=== PATIENT | female | born 1945 | race Caucasian/White ===

== ENCOUNTER 2016-09-21 09:13 | Inpatient (IN) ==
--- NOTE | 2016-09-21 14:32 | History & Physical Report ---
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 She had a left femoropopliteal bypass by Dr. Sanches in March 2016. However, following this procedure, the skin incision over the graft dehisced. Subsequently, she underwent a muscle flap with wound VAC on 04/14/[address] Escamilla, only to have it become infected with Pseudomonas. Dr. Sanches removed the left femoropopliteal bypass and then reapplied the wound VAC on 04/20/16. She has had a chronic nonhealing wound since that time. She represented to Dr. Sanches 's office on 06/09/16 with a severe infection of her left lower extremity and ulceration of the distal phalanx and dorsal aspect of the left foot. Amputation was recommended at that time, and she underwent left [id number]-iuv-fiha amputation by Dr. Yonatan Pike on 06/19/16. Since this time, she had developed a nonhealing wound of her left BKA stump and medial thigh. She was readmitted to the hospital, and underwent debridement of the left lower extremity stump and medial thigh wound on 09/13/[address] Pike. Cultures grew out Pseudomonas and Serratia marcescens, which were sensitive to cefepime.Instill VAC with Vashe was placed and she had slow improvement. During her hospitalization, her blood glucose was variable, ranging from mildly hypoglycemic to 200+. White count was occasionally elevated and was 12.9 on the day of discharge. Hemoglobin stable. Chemistries also remained stable with preserved renal function and GFR >60. A regular VAC was placed on 09/20/16, and arrangements were made for transfer to [facility] for continued IV antibiotics and wound care in swing bed status. Since her recent surgery she has denied any other physical symptoms besides pain. She's also had constipation, which has resolved. Review of Systems Comprehensive ROS: completed and no additional positive findings except those as stated - Gastrointestinal Gastrointestinal: Present: constipation, other (bloating) - Musculoskeletal Musculoskeletal: Present: as per HPI - Hematologic/Lymphatic Hematologic/Lymphatic: Present: easy bruising PFSH PVD Bradycardia normal EKG and troponin at [facility] Urinary retention Constipation DM type 2 with peripheral neuropathy, insulin-dependent. Last Hgb A1c was 6.4% on 10/05/15. Depression/anxiety Hx gastric ulcer IBS Surgical History: Left BKA (06/19/16). Left popliteal artery graft (04/20/16). Supplement left femoral artery with autologous tissue (04/20/16). Debridement of lower extremity with flap rotational pedicle (04/14/16). Femoral-popliteal artery bypass graft by Dr. Sanches (03/2016). Colonoscopy (08/06/12). EGD (08/06/12 ). Hysterectomy (1983). . Cholecystectomy Family History: Father - CAD, COPD Mother - Cancer PGF - CAD, HTN - Social History Smoking status: Current every day smoker packs per day: 1 Packs-years: 50 Substance use type: does not use Alcohol intake frequency: does not drink Current occupational status: retired Exam - Constitutional Present: no acute distress, well nourished, well developed - Routine HEENT Exam Eye: Present: PERRL. Absent: conjunctival icterus, scleral injection ENT: Present: mucous membranes moist, oropharynx clear - Routine Neck Exam Present: supple. Absent: lymphadenopathy - Routine Respiratory Exam Present: CTA bilaterally - Routine Cardiovascular Exam Present: RRR, S1, S2, bradycardia - Routine Abdominal Exam Present: normoactive bowel sounds, non tender, distended (mild) - Routine Extremities Exam Present: edema (2+ RLE). Absent: pulses intact (difficult to palpate left DP) - Routine Skin Exam Present: dry, warm Comments: dressing over left stump - Routine Neurological Exam Present: alert, oriented X3 - Routine Psychiatric Exam Present: normal affect, normal thought process, cooperative Assessment and Plan (1) Non-healing wound Current visit: Yes Status: Acute DVT Prophylaxis: Lovenox Resuscitation Status: Full Code Assessment and Plan: ASSESSMENT Non-healing wound of left BKA stump and medial thigh wound Cx grew Pseudomonas and Serratia marcescens, sensitive to cefepime. S/P debridement LLE stump & medial thigh wound on 09/13/[address] Pike. Instill VAC with Vashe was placed with slow improvement. Regular VAC was placed on 09/20/16. PVD Bradycardia normal EKG and troponin at [facility] Urinary retention Constipation DM type 2 with peripheral neuropathy, insulin-dependent. Last Hgb A1c was 6.4% on 10/05/15. Depression/anxiety Hx gastric ulcer IBS PLAN Admit to [facility], swing bed status for wound care and IV antibiotics. [facility] records were reviewed, along with DC instructions: -Cefepime IV q6h. -PICC line change weekly & PRN -Change wound vac MWF, suction @ 125 mm Hg -F/U [address] Pike -Plan to return for autograft at a later date. Check CBC and BMP in am - WBC was elevated at 12.9 on 09/20/16. Repeat hgb A1c. Carb consistent diet. Monitor BG and continue home meds. Consult wound team for wound vac care. Constipation - MiraLAX, other PRN's available. Pain control - Percocet. Also requesting Baclofen and Lyrica, which she's been taking at home. Consult PT/OT. Tobacco use - consult RT for tobacco cessation. Nicotine patch. Pt inquiring about other pharmacologic options as well. I informed her that [facility] is a nonsmoking facility. Pt and family report concern about vascular status in RLE - recommend f/u with vascular surgeon. I informed them they would not recommend any procedures until this infection has cleared up. PCP - Dr. Funk. At time of H&P, home meds have not yet been reconciled. Hospital Course Summary Disclaimer: The visit summary below is not to be considered part of the above Progress Note. Hospital Course: 09/21/16 ASSESSMENT Non-healing wound of left BKA stump and medial thigh wound Cx grew Pseudomonas and Serratia marcescens, sensitive to cefepime. S/P debridement LLE stump & medial thigh wound on 09/13/[address] Pike. Instill VAC with Vashe was placed with slow improvement. Regular VAC was placed on 09/20/16. PVD Bradycardia [facility] Urinary retention Constipation DM type 2 with peripheral neuropathy, insulin-dependent. Last Hgb A1c was 6.4% on 10/05/15. Depression/anxiety Hx gastric ulcer IBS PLAN Admit to [facility], swing bed status for wound care and IV antibiotics. [facility] records were reviewed, along with DC instructions: -Cefepime IV q6h. -PICC line change weekly & PRN -Change wound vac MWF, suction @ 125 mm Hg -F/U [address] Pike -Plan to return for autograft at a later date. Check CBC and BMP in am - WBC was elevated at 12.9 on 09/20/16. Repeat hgb A1c. Carb consistent diet. Monitor BG and continue home meds. Consult wound team for wound vac care. Constipation - MiraLAX, other PRN's available. Pain control - Percocet. Also requesting Baclofen and Lyrica, which she's been taking at home. Consult PT/OT. Tobacco use - consult RT for tobacco cessation. Nicotine patch. Pt inquiring about other pharmacologic options as well. I informed her that [facility] is a nonsmoking facility. Pt and family report concern about vascular status in RLE - recommend f/u with vascular surgeon. I informed them they would not recommend any procedures until this infection has cleared up. <Shona Singh - Last Filed: 09/21/16 17:02> History of Present Illness Date: 09/21/16 [facility] Patient Stated Medical History Cataracts Yes Hypotension Yes: at times Other Cardiology Yes: mitral valve prolapse, PAD Bronchitis Yes Pneumonia Yes Diabetes Mellitus Type 2 Yes Other GI Yes: IBS Other Hematologic Yes: on plavix for PAD Shingles Yes Blood Transfusions Yes Exam Vital Signs: Temperature 95.6 F L 09/21/16 14:43 Pulse Rate 83 09/21/16 14:43 Blood Pressure 120/48 09/21/16 14:43 Pulse Oximetry 94 09/21/16 14:43 Oxygen Delivery Method Room Air Height: 1.63 m Weight: 74.7 kg Assessment and Plan (1) Non-healing wound Current visit: Yes Status: Acute Assessment and Plan: 09/21/2016-I reviewed this chart, the patient history, and the BIRD CAGE ASSEMBLER's/PA's documented findings as above. We discussed and formulated the assessment and plan as above with the additions below. I have seen and examined the patient independently.-Dr. Singh Patient states that she is doing fairly well. She does have some continued pain in the left leg where her wound is from her BKA. Percocet does control her pain. She states her appetite has been good. She denies any shortness of breath. She denies any nausea or vomiting. She denies any diarrhea. She did have some constipation but that has resolved. She states that it is a little difficult to start urination but after a few moments she is able to urinate without difficulties. She states she would like some medication to help her quit smoking. She is tried Chantix and Wellbutrin and neither of them helped in the past. On exam she is alert and oriented 3 and in no acute distress. Chest is clear to auscultation. Cardiovascular reveals a regular rate and rhythm. Abdomen is soft and nontender. Extremities reveal a left BKA and the stump is currently wrapped. Right lower extremity shows 2+ edema. She states the edema has been there since her BKA in June. Agree with continued cefepime IV every 6 for postop wound infection after BKA. She will need antibiotics through September 30. I did ask case management to have paperwork from infectious disease specialist faxed to us with those recommendations. The patient states that Dr. Funk has given her a medication in the past for itching that supposedly helps with smoking cessation. I have called and spoken with his nurse and she will call back with the name of this medication. Regarding urinary retention, the patient states this is fairly mild and has not caused her any difficulties in the past. She denies any symptoms of UTI. Hospital Course Summary Disclaimer: The visit summary below is not to be considered part of the above Progress Note.
[2016-09-21] MEDS ORDERED: NICOTINE 21 MG PATCH TD PRN (15:05)
[2016-09-21] MEDS ORDERED: SENNA + DOCUSATE TABLET PO PRN (15:06)
[2016-09-21] MEDS ORDERED: BISACODYL 10 MG SUPPOSITORY RECTALLY PRN (15:06)
[2016-09-21] MEDS ORDERED: NICOTINE PATCH REMOVAL TD PRN (15:21)
[2016-09-21 15:54] VITALS: BMI 28.3
[2016-09-21] MEDS: CEFEPIME 1 GM in NS 100 ML IV SCH ×2 (17:12→22:29)
[2016-09-21] MEDS ORDERED: BACLOFEN 10 MG TABLET PO PRN (18:37)
[2016-09-21] MEDS ORDERED: APAP PO SCH (18:45)
[2016-09-21] MEDS ORDERED: OXYCODONE PO SCH (18:45)
[2016-09-21] MEDS ORDERED: INSULIN GLARGINE 100unit/ml INJECTION SQ SCH (22:00)
[2016-09-21] MEDS: PREGABALIN 100 MG CAPSULE PO SCH ×2 (22:30→23:47)
[2016-09-21] MEDS: ROSUVASTATIN 20 MG TABLET PO SCH (23:26)
[2016-09-22] MEDS: CEFEPIME 1 GM in NS 100 ML IV SCH ×4 (04:09→21:25)
[2016-09-22] MEDS: INSULIN ASPART 100unit/ml INJECTION SQ SCH ×3 (08:30→18:53)
[2016-09-22] MEDS: ENOXAPARIN 40 MG/0.4 ML INJECTION SQ SCH (08:30)
[2016-09-22] MEDS: CALCIUM CITRATE 950 MG TABLET PO SCH (08:31)
[2016-09-22] MEDS: MULTI-VITAMIN + MINERAL TABLET PO SCH (08:31)
[2016-09-22] MEDS: LACTOBACILLUS (15B cfu) CAPSULE PO SCH (08:31)
[2016-09-22] MEDS: ZINC GLUCONATE 50 MG TABLET PO SCH (08:32)
[2016-09-22] MEDS: MAGNESIUM OXIDE 400 MG TABLET PO SCH (08:32)
[2016-09-22] MEDS: CLOPIDOGREL 75 MG TABLET PO SCH (08:32)
[2016-09-22] MEDS: LISINOPRIL 10 MG TABLET PO SCH (08:32)
[2016-09-22] MEDS: PREGABALIN 100 MG CAPSULE PO SCH ×3 (08:32→20:17)
[2016-09-22] MEDS ORDERED: DULOXETINE 60 MG CAPSULE PO SCH (09:00)
[2016-09-22] MEDS ORDERED: POLYETHYL GLYCOL 3350 17gm PACKET PO SCH (09:00)
[2016-09-22] MEDS: ASCORBIC ACID 500 MG TABLET PO SCH (09:39)
[2016-09-22] MEDS: POLYETHYL GLYCOL 3350 17gm PACKET PO SCH (09:39)
[2016-09-22] MEDS: DULOXETINE 30 MG CAPSULE PO SCH (09:39)
[2016-09-22] MEDS: Oxycodone/Acetaminophen 5/325 1 TAB PO PRN (12:58)
--- NOTE | 2016-09-22 13:20 | Wound Care Progress Note ---
Wound Management - Wound Left Distal Leg Wound Type: Open Wound Wound Present on Admission?: Yes Length: 5 Width: 5.8 Depth: 0.6 Tunneling Location (o'clock): 1 (depth of 3.6 at 1o'clock & 1.9 at 7o'clock) Wound Bed Appearance: Yellow Natalia Wound Appearance: Indurated, Macerated Tunneling: Yes (at 1 o'clock & 7 o'clock) Drainage Description: Gates Drainage Amount: Moderate Drainage Odor: No Odor Dressing Status: Changed Irrigant Solution: Saline Irrigant Packing Type: Gauze Pads (anticipate wound vac orders from Dr Iyer this afternoon. Anticipate Wound vac placement - if ordered - later today.) Dressing Change Date: 09/22/16 Dressing Change Time: 01:24 (Dr Iyer will establish wound treatmement plan at time of consult.) Dressing Change Patient Tolerance: Tolerated Well
[2016-09-22] MEDS ORDERED: HYDROMORPHONE 2 MG/ML INJECTION IVP PRN (13:31)
--- NOTE | 2016-09-22 13:45 | Progress Note ---
Subjective: The patient states that she is feeling okay. She did not sleep well last night. Per her nurse, she has been going out side to smoke even though she was told this was a nonsmoking facility and she was encouraged not to smoke because of her peripheral vascular disease and difficult to heal wound. She has refused trying nicotine patch because she states she has tried it in the past and it does not work. She has tried Wellbutrin and Chantix and had side effects from both of these. She is otherwise feeling okay. She is eating and drinking well. She denies any pain other than in her left BKA associated with her nonhealing wound. Objective Vital signs: Temperature 97.4 F 09/22/16 02:27 Pulse Rate 76 09/22/16 08:20 Respiratory Rate 16 09/22/16 02:27 Blood Pressure 112/58 09/22/16 08:20 Pulse Oximetry 96 09/22/16 02:27 Oxygen Delivery Method Room Air Height: 1.63 m Weight: 74.7 kg Body Mass Index: 28.3 Comments: GEN-alert, oriented, no acute distress CV-regular rate and rhythm CHEST-to auscultation bilaterally ABD-soft, nontender with positive bowel sounds -no Pham EXT-+ 1 edema of the left lower extremity which has been present for several months, she has a nonhealing wound at the distal end of her left BKA NEURO-no focal deficits SKIN-warm and dry, mild erythema of the right long which I think is related to her chronic edema Results - Labs CBC & Chem 7: 09/22/16 04:55 09/22/16 04:55 Assessment and Plan (1) Non-healing wound Current visit: Yes Status: Acute Assessment and Plan: 09/22/2016 -Dr. Singh Impression Infected, nonhealing wound of left BKA stump with culture growing Pseudomonas and Serratia marcescens sensitive to cefepime Type 2 diabetes mellitus-currently well controlled on usual home insulin. Peripheral vascular disease History of bradycardia with normal EKG and troponin of via [facility] Mild urinary retention-no treatment required at this time constipation Depression/anxiety History of gastric ulcer Irritable bowel syndrome Tobaccoism Continue cefepime 1 g IV every 6 hours through September 30. Plan for discharge on October 01. Wound care per Dr. Iyer. Dr. Iyer has been consulted for possible debridement and wound VAC placement Continue current insulin for type 2 diabetes and continue to monitor Accu-Cheks Recommend smoking cessation. She can try the nicotine patches again if she wishes that she cannot use the nicotine patch and smoke at the same time. Discussed with the patient's nurse, case management and wound care team. Sepsis Assessment - Evaluation Sepsis screening result: No Definite Risk Hospital Course Summary Disclaimer: The visit summary below is not to be considered part of the above Progress Note. Hospital Course: 09/21/16 ASSESSMENT Non-healing wound of left BKA stump and medial thigh wound Cx grew Pseudomonas and Serratia marcescens, sensitive to cefepime. S/P debridement LLE stump & medial thigh wound on 09/13/[address] Pike. Instill VAC with Vashe was placed with slow improvement. Regular VAC was placed on 09/20/16. PVD Bradycardia normal EKG and troponin at [facility] Urinary retention Constipation DM type 2 with peripheral neuropathy, insulin-dependent. Last Hgb A1c was 6.4% on 10/05/15. Depression/anxiety Hx gastric ulcer IBS PLAN Admit to [facility], swing bed status for wound care and IV antibiotics. Via [facility] records were reviewed, along with DC instructions: -Cefepime IV q6h. -PICC line change weekly & PRN -Change wound vac MWF, suction @ 125 mm Hg -F/U [address] Pike -Plan to return for autograft at a later date. Check CBC and BMP in am - WBC was elevated at 12.9 on 09/20/16. Repeat hgb A1c. Carb consistent diet. Monitor BG and continue home meds. Consult wound team for wound vac care. Constipation - MiraLAX, other PRN's available. Pain control - Percocet. Also requesting Baclofen and Lyrica, which she's been taking at home. Consult PT/OT. Tobacco use - consult RT for tobacco cessation. Nicotine patch. Pt inquiring about other pharmacologic options as well. I informed her that [facility] is a nonsmoking facility. Pt and family report concern about vascular status in RLE - recommend f/u with vascular surgeon. I informed them they would not recommend any procedures until this infection has cleared up. 09/21/2016-I reviewed this chart, the patient history, and the FIRST COOK's/PA's documented findings as above. We discussed and formulated the assessment and plan as above with the additions below. I have seen and examined the patient independently.-Dr. Singh Patient states that she is doing fairly well. She does have some continued pain in the left leg where her wound is from her BKA. Percocet does control her pain. She states her appetite has been good. She denies any shortness of breath. She denies any nausea or vomiting. She denies any diarrhea. She did have some constipation but that has resolved. She states that it is a little difficult to start urination but after a few moments she is able to urinate without difficulties. She states she would like some medication to help her quit smoking. She is tried Chantix and Wellbutrin and neither of them helped in the past. On exam she is alert and oriented 3 and in no acute distress. Chest is clear to auscultation. Cardiovascular reveals a regular rate and rhythm. Abdomen is soft and nontender. Extremities reveal a left BKA and the stump is currently wrapped. Right lower extremity shows 2+ edema. She states the edema has been there since her BKA in June. Agree with continued cefepime IV every 6 for postop wound infection after BKA. She will need antibiotics through September 30. I did ask case management to have paperwork from infectious disease specialist faxed to us with those recommendations. The patient states that Dr. Funk has given her a medication in the past for itching that supposedly helps with smoking cessation. I have called and spoken with his nurse and she will call back with the name of this medication. Regarding urinary retention, the patient states this is fairly mild and has not caused her any difficulties in the past. She denies any symptoms of UTI.
--- NOTE | 2016-09-22 14:13 | Progress Note ---
Subjective: Alysia was seen during a late lunch - she is eating healthily with a salad and vegetable sides. She is doing fairly well but is still bloated. Bowels are moving and she's passing flatus. She slept fair last night. She is expecting the wound team this afternoon to apply the vac. Objective Vital signs: Temperature 97.4 F 09/22/16 02:27 Pulse Rate 76 09/22/16 08:20 Respiratory Rate 16 09/22/16 02:27 Blood Pressure 112/58 09/22/16 08:20 Pulse Oximetry 96 09/22/16 02:27 Oxygen Delivery Method Room Air Height: 1.63 m Weight: 74.7 kg Body Mass Index: 28.3 - Constitutional Present: no acute distress, well nourished, well developed - Routine HEENT Exam Head: Present: normocephalic ENT: Present: mucous membranes moist - Routine Respiratory Exam Present: CTA bilaterally - Routine Cardiovascular Exam Present: RRR, S1, S2 - Routine Abdominal Exam Present: soft, normoactive bowel sounds (hyperactive), non tender, distended - Routine Extremities Exam Present: edema (2-3+ RLL), amputation (left bka - stump covered in dsg - no wound vac yet) - Routine Skin Exam Present: intact, dry, warm - Routine Neurological Exam Present: alert, oriented X3 - Routine Psychiatric Exam Present: normal affect, normal thought process Results - Labs CBC & Chem 7: 09/22/16 04:55 09/22/16 04:55 Assessment and Plan (1) Non-healing wound Current visit: Yes Status: Acute Assessment and Plan: Impression Infected, nonhealing wound of left BKA stump with culture growing Pseudomonas and Serratia marcescens sensitive to cefepime Mild hypernatremia, not POA Leukocytosis, POA - resolved Type 2 diabetes mellitus-currently well controlled on usual home insulin. Peripheral vascular disease History of bradycardia with normal EKG and troponin of via [facility] Mild urinary retention-no treatment required at this time constipation Depression/anxiety History of gastric ulcer Irritable bowel syndrome Tobaccoism PLAN Continue Cefepime IV q6h. Stop date is 07/31 and then can DC home with home health on 10/01/16. Leukocytosis - WBC normal today. Mild hypernatremia Constipation - continue meds. Monitor for ileus. Tobacco cessation - awaiting to hear back from PCP's office (apparently Dr. Funk has recommended a medication to her in the past to help with quitting) DM2 - Hgb A1c pending. BGM stable. Sepsis Assessment - Evaluation Sepsis screening result: No Definite Risk Hospital Course Summary Disclaimer: The visit summary below is not to be considered part of the above Progress Note. Hospital Course: 09/21/16 ASSESSMENT Non-healing wound of left BKA stump and medial thigh wound Cx grew Pseudomonas and Serratia marcescens, sensitive to cefepime. S/P debridement LLE stump & medial thigh wound on 09/13/[address] Pike. Instill VAC with Vashe was placed with slow improvement. Regular VAC was placed on 09/20/16. PVD Bradycardia normal EKG and troponin at [facility] Urinary retention Constipation DM type 2 with peripheral neuropathy, insulin-dependent. Last Hgb A1c was 6.4% on 10/05/15. Depression/anxiety Hx gastric ulcer IBS PLAN Admit to [facility], swing bed status for wound care and IV antibiotics. [facility] records were reviewed, along with DC instructions: -Cefepime IV q6h. -PICC line change weekly & PRN -Change wound vac MWF, suction @ 125 mm Hg -F/U [address] Pike -Plan to return for autograft at a later date. Check CBC and BMP in am - WBC was elevated at 12.9 on 09/20/16. Repeat hgb A1c. Carb consistent diet. Monitor BG and continue home meds. Consult wound team for wound vac care. Constipation - MiraLAX, other PRN's available. Pain control - Percocet. Also requesting Baclofen and Lyrica, which she's been taking at home. Consult PT/OT. Tobacco use - consult RT for tobacco cessation. Nicotine patch. Pt inquiring about other pharmacologic options as well. I informed her that [facility] is a nonsmoking facility. Pt and family report concern about vascular status in RLE - recommend f/u with vascular surgeon. I informed them they would not recommend any procedures until this infection has cleared up. 09/21/2016-I reviewed this chart, the patient history, and the DEPUTY GENERAL COUNSEL's/PA's documented findings as above. We discussed and formulated the assessment and plan as above with the additions below. I have seen and examined the patient independently.-Dr. Singh Patient states that she is doing fairly well. She does have some continued pain in the left leg where her wound is from her BKA. Percocet does control her pain. She states her appetite has been good. She denies any shortness of breath. She denies any nausea or vomiting. She denies any diarrhea. She did have some constipation but that has resolved. She states that it is a little difficult to start urination but after a few moments she is able to urinate without difficulties. She states she would like some medication to help her quit smoking. She is tried Chantix and Wellbutrin and neither of them helped in the past. Agree with continued cefepime IV every 6 for postop wound infection after BKA. She will need antibiotics through September 30. I did ask case management to have paperwork from infectious disease specialist faxed to us with those recommendations. The patient states that Dr. Funk has given her a medication in the past for itching that supposedly helps with smoking cessation. I have called and spoken with his nurse and she will call back with the name of this medication. Regarding urinary retention, the patient states this is fairly mild and has not caused her any difficulties in the past. She denies any symptoms of UTI. 09/22/16 Continue Cefepime IV q6h. Stop date is 07/31 and then can DC home with home health on 10/01/16. Leukocytosis - WBC normal today. Mild hypernatremia
--- NOTE | 2016-09-22 16:31 | General Surgery Procedure Note ---
Date of Procedure: 09/22/16 Surgeon: Other (Lelo Cruz, [employer] VICE PRESIDENT) Postoperative Diagnosis: wound left BKA stump Procedure: Wound vac with 1 piece black foam to stump wound. Suction at 125, continuous. Estimated Blood Loss: See Anesthesia Record.
--- NOTE | 2016-09-22 16:35 | General Surgery Consult Note ---
Consult date: 09/22/16 Attending Physician: Shona Singh MD Reason for consult: wound care [facility] Patient Stated Medical History Cataracts Yes Hypotension Yes: at times Other Cardiology Yes: mitral valve prolapse, PAD Bronchitis Yes Pneumonia Yes Diabetes Mellitus Type 2 Yes Other GI Yes: IBS Other Hematologic Yes: on plavix for PAD Shingles Yes Blood Transfusions Yes Surgical History: Left BKA (06/19/16). Left popliteal artery graft (04/20/16). Supplement left femoral artery with autologous tissue (04/20/16). Debridement of lower extremity with flap rotational pedicle (04/14/16). Femoral-popliteal artery bypass graft by Dr. Sanches (03/2016). Colonoscopy (08/06/12). EGD (08/06/12 ). Hysterectomy (1983). . Cholecystectomy Family History: father - COPD, CAD mother - cancer - Social History Smoking status: Current every day smoker Substance use type: does not use Alcohol intake frequency: does not drink Current occupational status: retired Current residence: Apartment/Private Home Medications Home Medications Medication Instructions Recorded Confirmed Type Alendronate [Fosamax] 70 mg PO Q7D 09/21/16 09/21/16 History Ascorbic Acid 500 mg PO DAILY 09/21/16 09/21/16 History Baclofen [Lioresal] 1 tab PO Q8HPRN PRN 09/21/16 09/21/16 History Calcium Citrate 250 mg PO DAILY 09/21/16 09/21/16 History Cholecalciferol (Vitamin D3) 1 tab PO DAILY 09/21/16 09/21/16 History [Vitamin D3] Ciclopirox/Ure/Camph/Menth/Euc 34.6 ml TP DAILY 09/21/16 09/21/16 History [Ciclopirox 8% Treatment Kit] Clopidogrel Bisulfate [Clopidogrel] 1 tab PO DAILY 09/21/16 09/21/16 History Duloxetine [Cymbalta] 90 mg PO DAILY 09/21/16 09/21/16 History Insulin Aspart [NovoLOG] 20 unit SQ TIDWM 09/21/16 09/21/16 History Insulin Degludec *U100* [Tresiba 40 unit SQ HS 09/21/16 09/21/16 History Flextouch U-100 Pen] Lactobacillus Rhamnosus GG 1 each PO DAILY 09/21/16 09/21/16 History [Culturelle] Lisinopril [Prinivil] 10 mg PO DAILY 09/21/16 09/21/16 History Magnesium Oxide [Magnesium] 1 tab PO DAILY 09/21/16 09/21/16 History Multivitamin [One Daily] 1 each PO DAILY 09/21/16 09/21/16 History Oxycodone/APAP 5/325 1 tab PO Q6HPRN 09/21/16 09/21/16 History Polyethylene Glycol 3350 [Miralax] 17 gm PO DAILY 09/21/16 09/21/16 History Pregabalin Cap [Lyrica] 100 mg PO TID 09/21/16 09/21/16 History Rosuvastatin Calcium 40 mg PO HS 09/21/16 09/21/16 History Zinc Sulfate 220 mg PO DAILY 09/21/16 09/21/16 History Allergies Allergy/AdvReac Type Severity Reaction Status Date / Time codeine Allergy Unknown Verified 09/21/16 16:29 Review of Systems 10-point ROS: negative except for HPI and the following: - Gastrointestinal Gastrointestinal: Present: constipation - Musculoskeletal Musculoskeletal: Present: other (stump pain, left BKA, uses wheelchair and is hoping for a prosthesis at some point.) - Endocrine Endocrine: Present: diabetes - Vital Signs Last Vital Signs Temp 97.4 F 09/22/16 02:27 Pulse 76 09/22/16 08:20 Resp 16 09/22/16 02:27 BP 112/58 09/22/16 08:20 Pulse Ox 96 09/22/16 02:27 - Laboratory Result Diagrams: 09/22/16 04:55 09/22/16 04:55 Wound/Stoma/Drain Assessment - Wound Management Left Distal Leg Wound Type: Open Wound Wound Present on Admission?: Yes Wound Length: 5 Wound Width: 5.8 Wound Depth: 0.6 Tunneling: Yes (at 1 o'clock & 7 o'clock) Wound Bed Appearance: Yellow Wound Surrounding Tissue Appearance: Indurated, Macerated Wound Drainage Description: Gates Wound Drainage Amount: Moderate Wound Drainage Odor: No Odor Wound Dressing Status: Changed Wound Irrigant Solution: Saline Irrigant Wound Packing Type: Gauze Pads (anticipate wound vac orders from Dr Iyer this afternoon. Anticipate Wound vac placement - if ordered - later today.) Dressing Change Date: 09/22/16 Dressing Change Time: 01:24 (Dr Iyer will establish wound treatmement plan at time of consult.) Dressing Change Patient Tolerance: Tolerated Well General Surgery Results - Results Labs: 09/22/16 04:55 09/22/16 04:55 Hospital Course Summary Disclaimer: The visit summary below is not to be considered part of the above Progress Note. Hospital Course: 09/21/16 ASSESSMENT Non-healing wound of left BKA stump and medial thigh wound Cx grew Pseudomonas and Serratia marcescens, sensitive to cefepime. S/P debridement LLE stump & medial thigh wound on 09/13/[address] Pike. Instill VAC with Vashe was placed with slow improvement. Regular VAC was placed on 09/20/16. PVD Bradycardia normal EKG and troponin at [facility] Urinary retention Constipation DM type 2 with peripheral neuropathy, insulin-dependent. Last Hgb A1c was 6.4% on 10/05/15. Depression/anxiety Hx gastric ulcer IBS PLAN Admit to [facility], swing bed status for wound care and IV antibiotics. [facility] records were reviewed, along with DC instructions: -Cefepime IV q6h. -PICC line change weekly & PRN -Change wound vac MWF, suction @ 125 mm Hg -F/U [address] Pike -Plan to return for autograft at a later date. Check CBC and BMP in am - WBC was elevated at 12.9 on 09/20/16. Repeat hgb A1c. Carb consistent diet. Monitor BG and continue home meds. Consult wound team for wound vac care. Constipation - MiraLAX, other PRN's available. Pain control - Percocet. Also requesting Baclofen and Lyrica, which she's been taking at home. Consult PT/OT. Tobacco use - consult RT for tobacco cessation. Nicotine patch. Pt inquiring about other pharmacologic options as well. I informed her that [facility] is a nonsmoking facility. Pt and family report concern about vascular status in RLE - recommend f/u with vascular surgeon. I informed them they would not recommend any procedures until this infection has cleared up. 09/21/2016-I reviewed this chart, the patient history, and the MANAGER VAN's/PA's documented findings as above. We discussed and formulated the assessment and plan as above with the additions below. I have seen and examined the patient independently.-Dr. Singh Patient states that she is doing fairly well. She does have some continued pain in the left leg where her wound is from her BKA. Percocet does control her pain. She states her appetite has been good. She denies any shortness of breath. She denies any nausea or vomiting. She denies any diarrhea. She did have some constipation but that has resolved. She states that it is a little difficult to start urination but after a few moments she is able to urinate without difficulties. She states she would like some medication to help her quit smoking. She is tried Chantix and Wellbutrin and neither of them helped in the past. Agree with continued cefepime IV every 6 for postop wound infection after BKA. She will need antibiotics through September 30. I did ask case management to have paperwork from infectious disease specialist faxed to us with those recommendations. The patient states that Dr. Funk has given her a medication in the past for itching that supposedly helps with smoking cessation. I have called and spoken with his nurse and she will call back with the name of this medication. Regarding urinary retention, the patient states this is fairly mild and has not caused her any difficulties in the past. She denies any symptoms of UTI. 09/22/16 Continue Cefepime IV q6h. Stop date is 07/31 and then can DC home with home health on 10/01/16. Leukocytosis - WBC normal today. Mild hypernatremia Sepsis Assessment - Evaluation Sepsis screening result: No Definite Risk
--- NOTE | 2016-09-22 17:46 | Consultation ---
DATE OF CONSULTATION 09/22/2016 FINDINGS Mrs. Rosa is a 71-year-old female whom I was asked to see today as a result of a wound involving her left dntcl-pys-dixc amputation site. The patient has a complicated history. She does have history for diabetes mellitus associated with peripheral arterial disease. Earlier this year she did undergo peripheral bypass utilizing probably a PTFE graft. Patient states that her "artificial artery" became infected with Pseudomonas requiring left edxqv-sud-axwr amputation. She states that she has been hospitalized in [place] and was transferred to our facility as a swing bed status for her further care. Patient states that following debridement she did develop a large wound involving the left stump. She states that she had been returned to the operating room for additional debridement and that they had been utilizing a wound VAC at [facility]. Patient this evening was in good spirits. PAST MEDICAL HISTORY, PAST SURGICAL HISTORY, MEDICATIONS, ALLERGIES, SOCIAL HISTORY, FAMILY HISTORY, REVIEW OF SYSTEMS Performed by my nurse practitioner, Juanjo Cruz APRN PHYSICAL EXAMINATION GENERAL: Mrs. Rosa is a 71-year-old female who this evening did not appear to be in acute distress. VITAL SIGNS: Temperature 97.4. Pulse 76. Respirations 16. Blood pressure 112/ 58. Sa02 96% on room air. HEENT: Normocephalic. Pupils are equally round and react to light and accommodation. CHEST: Clear to auscultation bilaterally. HEART: Regular rate and rhythm. Normal S1 and S2 without gallops, murmurs or clicks. ABDOMEN: Palpation of the abdomen reveals it to be soft and nontender. I do not appreciate any evidence for hepatosplenomegaly nor abnormal masses. EXTREMITIES: Attention was focused to her left lower extremity. Patient has undergone a prior left nfnrf-qzw-vciv amputation. She does have a large open wound involving the stump portion. This open wound is about 5-6 cm in diameter. There are some necrotic subcutaneous tissues within the depth the wound. There is beginning of some granulation tissue to form within the wound itself. Additionally, she has a smaller wound involving the left medial thigh at the site of her prior peripheral bypass. NEURO: Cranial nerves II-XII grossly intact. Patient is without focal motor or sensory deficits. LABORATORY/RADIOGRAPHIC EVALUATION The patient had a CBC and BMP upon admission. These labs were reviewed. I have reviewed admission history physical performed by hospitalist. ASSESSMENT 71-year-old female with multiple medical comorbidities who has had the misfortune of developing Pseudomonas infection following peripheral bypass resulting in left jwsfv-gug-kcso amputation with associated open wound. PLAN From a surgical standpoint it is my recommendation that we proceed with some additional debridement at the bedside today. Utilizing a sharp surgical curette , tissue forceps and a 15 blade, the nonviable subcutaneous tissues that were present within the wound bed were sharply debrided until a minimal amount of bleeding began to occur. The patient did experience some pain during the procedure but overall did fairly well. She was given intravenous Dilaudid during the procedure to reduce her pain. Following debridement a wound VAC was applied. Surrounding skin was prepped and Steri-Drape was placed surrounding the wound edges. Black foam was then placed overlying the wound bed followed by additional Steri-Drape. Wound vac was subsequently attached. The patient tolerated this without difficulty. I would recommend continuing with ongoing antibiotics as indicated from her cultures. Will continue to follow along in patient's care. On Sunday when available we may place a VeraFlo wound VAC. I informed the patient that following her discharge if she would desire we would be more than happy to take care of her at our wound center here in [place]. The patient does live locally. I informed the patient that it would be my recommendation that we utilize negative wound pressure therapy over the next couple of weeks and at that point in time would hopefully have a good enough granulation bed present that one could proceed with split-thickness skin grafting. ROSEMARY
[2016-09-22] MEDS: ROSUVASTATIN 20 MG TABLET PO SCH ×2 (20:17→21:16)
[2016-09-22] MEDS: INSULIN DEGLUDEC SQ SCH (21:16)
[2016-09-23] MEDS: CEFEPIME 1 GM in NS 100 ML IV SCH ×4 (03:21→20:34)
[2016-09-23] MEDS: MULTI-VITAMIN + MINERAL TABLET PO SCH (08:29)
[2016-09-23] MEDS: CALCIUM CITRATE 950 MG TABLET PO SCH (08:32)
[2016-09-23] MEDS: DULOXETINE 30 MG CAPSULE PO SCH (08:33)
[2016-09-23] MEDS: ASCORBIC ACID 500 MG TABLET PO SCH (08:33)
[2016-09-23] MEDS: LISINOPRIL 10 MG TABLET PO SCH (08:33)
[2016-09-23] MEDS: PREGABALIN 100 MG CAPSULE PO SCH ×3 (08:33→20:34)
[2016-09-23] MEDS: LACTOBACILLUS (15B cfu) CAPSULE PO SCH (08:33)
[2016-09-23] MEDS: CLOPIDOGREL 75 MG TABLET PO SCH (08:33)
[2016-09-23] MEDS: ZINC GLUCONATE 50 MG TABLET PO SCH (08:33)
[2016-09-23] MEDS: POLYETHYL GLYCOL 3350 17gm PACKET PO SCH (08:34)
[2016-09-23] MEDS: MAGNESIUM OXIDE 400 MG TABLET PO SCH (08:34)
[2016-09-23] MEDS: ENOXAPARIN 40 MG/0.4 ML INJECTION SQ SCH (08:34)
[2016-09-23] MEDS: INSULIN ASPART 100unit/ml INJECTION SQ SCH ×3 (08:47→18:00)
[2016-09-23] MEDS ORDERED: FALL RISK - PHARMACY CONSULT MC PRN (12:02)
--- NOTE | 2016-09-23 12:30 | Progress Note ---
Subjective: Feeling fine, unhooks her wound vac frequently to go out and smoke. Had a fall this morning when in the bathroom; feels this is due to poor engineering and doesn't want to wait for nursing help in the shower. Some pain at her stump but not terrible. Discussed smoking at length; she is not ready to quit although she may try vaping. Willing to sign AMA form if needed to go out and smoke. Discussed risks to her health, both acute and chronic, risk of falling and not having help. Objective Vital signs: Temperature 98.6 F 09/23/16 08:40 Pulse Rate 66 09/23/16 08:40 Respiratory Rate 18 09/23/16 08:40 Blood Pressure 138/59 09/23/16 08:40 Pulse Oximetry 96 09/23/16 08:40 Oxygen Delivery Method Room Air Weight: 73.7 kg - Constitutional Present: no acute distress, well nourished, well developed - Routine HEENT Exam Head: Present: normocephalic, atraumatic Eye: Present: EOMI, PERRL. Absent: conjunctival icterus ENT: Present: mucous membranes moist, oropharynx clear - Routine Respiratory Exam Present: CTA bilaterally. Absent: accessory muscle use, respiratory distress - Routine Cardiovascular Exam Present: RRR. Absent: murmur - Routine Abdominal Exam Present: soft, non distended, non tender - Routine Extremities Exam Present: non tender. Absent: edema Comments: Left BKA stump with wound vac intact distally - Routine Skin Exam Present: dry, warm. Absent: rash - Routine Neurological Exam Present: alert, oriented X3, vision grossly intact, hearing grossly intact - Routine Psychiatric Exam Present: normal affect Results - Labs CBC & Chem 7: 09/22/16 04:55 09/22/16 04:55 Assessment and Plan DVT Prophylaxis: Lovenox Resuscitation Status: Full Code Assessment and Plan: Impression Infected, nonhealing wound of left BKA stump with culture growing Pseudomonas and Serratia marcescens sensitive to cefepime Mild hypernatremia, not POA, secondary to poor po intake Leukocytosis, POA - resolved Type 2 diabetes mellitus-currently well controlled on usual home insulin. Peripheral vascular disease History of bradycardia with normal EKG and troponin of via [facility] Mild urinary retention-no treatment required at this time, improved Constipation, improving Depression/anxiety History of gastric ulcer Irritable bowel syndrome Tobacco dependence, not willing to discuss cessation currently, declines nicotine supplementation PLAN Continue Cefepime IV q6h. Stop date is 09/30 and then can DC home with home health on 10/01/16. Leukocytosis - WBC normal today, monitor Mild hypernatremia, monitor Constipation - continue meds. Monitor for ileus. Improved. Tobacco cessation - Willing to try vaping but that is not an inpatient solution , has signed AMA form documenting risks to her health and is going out to smoke on her own, will continue to discuss with her. DM2 - Continue current insulin dosing. BGM stable. Discussed with the nursing staff at bedside, patient at length. Sepsis Assessment - Evaluation Sepsis screening result: No Definite Risk Hospital Course Summary Disclaimer: The visit summary below is not to be considered part of the above Progress Note. Hospital Course: 09/21/16 ASSESSMENT Non-healing wound of left BKA stump and medial thigh wound Cx grew Pseudomonas and Serratia marcescens, sensitive to cefepime. S/P debridement LLE stump & medial thigh wound on 09/13/[address] Pike. Instill VAC with Vashe was placed with slow improvement. Regular VAC was placed on 09/20/16. PVD Bradycardia normal EKG and troponin at [facility] Urinary retention Constipation DM type 2 with peripheral neuropathy, insulin-dependent. Last Hgb A1c was 6.4% on 10/05/15. Depression/anxiety Hx gastric ulcer IBS PLAN Admit to [facility], swing bed status for wound care and IV antibiotics. [facility] records were reviewed, along with DC instructions: -Cefepime IV q6h. -PICC line change weekly & PRN -Change wound vac MWF, suction @ 125 mm Hg -F/U [address] Pike -Plan to return for autograft at a later date. Check CBC and BMP in am - WBC was elevated at 12.9 on 09/20/16. Repeat hgb A1c. Carb consistent diet. Monitor BG and continue home meds. Consult wound team for wound vac care. Constipation - MiraLAX, other PRN's available. Pain control - Percocet. Also requesting Baclofen and Lyrica, which she's been taking at home. Consult PT/OT. Tobacco use - consult RT for tobacco cessation. Nicotine patch. Pt inquiring about other pharmacologic options as well. I informed her that [facility] is a nonsmoking facility. Pt and family report concern about vascular status in RLE - recommend f/u with vascular surgeon. I informed them they would not recommend any procedures until this infection has cleared up. 09/21/2016-I reviewed this chart, the patient history, and the MOBILE PAINT SPECIALIST's/PA's documented findings as above. We discussed and formulated the assessment and plan as above with the additions below. I have seen and examined the patient independently.-Dr. Singh Patient states that she is doing fairly well. She does have some continued pain in the left leg where her wound is from her BKA. Percocet does control her pain. She states her appetite has been good. She denies any shortness of breath. She denies any nausea or vomiting. She denies any diarrhea. She did have some constipation but that has resolved. She states that it is a little difficult to start urination but after a few moments she is able to urinate without difficulties. She states she would like some medication to help her quit smoking. She is tried Chantix and Wellbutrin and neither of them helped in the past. Agree with continued cefepime IV every 6 for postop wound infection after BKA. She will need antibiotics through September 30. I did ask case management to have paperwork from infectious disease specialist faxed to us with those recommendations. The patient states that Dr. Funk has given her a medication in the past for itching that supposedly helps with smoking cessation. I have called and spoken with his nurse and she will call back with the name of this medication. Regarding urinary retention, the patient states this is fairly mild and has not caused her any difficulties in the past. She denies any symptoms of UTI. 09/22/16 Continue Cefepime IV q6h. Stop date is 07/31 and then can DC home with home health on 10/01/16. Leukocytosis - WBC normal today. Mild hypernatremia 09/23/16 Continue Cefepime IV q6h. Stop date is 09/30 and then can DC home with home health on 10/01/16. Leukocytosis - WBC normal today, monitor Mild hypernatremia, monitor Constipation - continue meds. Monitor for ileus. Improved. Tobacco cessation - Willing to try vaping but that is not an inpatient solution , has signed AMA form documenting risks to her health and is going out to smoke on her own, will continue to discuss with her. DM2 - Continue current insulin dosing. BGM stable.
--- NOTE | 2016-09-23 14:05 | Progress Note ---
DATE OF SERVICE 09/23/2016 FINDINGS I did go into the patient's room today to examine the patient this morning. The patient was not in her room. The tubing of the wound V.A.C. had been unclamped, and the machine portion of the wound V.A.C. was still present within the room as well as her IV pole. Nursing informs me the patient is frequently unhooking herself from the wound V.A.C. and going outside to smoke. Our campus is nonsmoking. Patient has been instructed that this is not acceptable but continues to apparently leave the room frequently and unhook herself from the wound V.A.C. PHYSICAL EXAMINATION VITAL SIGNS: Afebrile. Normotensive. ASSESSMENT A 71-year-old female status post left imojn-ltr-jvtq amputation as a result of a Pseudomonas infection involving prior peripheral bypass. Patient appears to be quite noncompliant. PLAN In my opinion, if the patient is not following our instructions and continues to unhook herself from the wound V.A.C. and is going outside to smoke, I question whether or not she really should continue to be hospitalized if she is not compliant in nature. Perhaps the patient would be better served by being transferred to a long-term facility for her ongoing IV infusions. Apparently the patient's IV infusions are fairly frequently and cannot be accomplished by home health. At a later time when the patient is in the room, I will address her noncompliance. ROSEMARY
[2016-09-23] MEDS: Oxycodone/Acetaminophen 5/325 1 TAB PO PRN (20:40)
[2016-09-23] MEDS: ROSUVASTATIN 20 MG TABLET PO SCH (21:03)
[2016-09-23] MEDS: INSULIN DEGLUDEC SQ SCH (21:04)
[2016-09-23] MEDS: BACLOFEN 10 MG TABLET PO PRN (21:09)
[2016-09-24] MEDS: CEFEPIME 1 GM in NS 100 ML IV SCH ×4 (03:22→20:50)
[2016-09-24] MEDS: ALENDRONATE 70 MG TABLET PO SCH (06:54)
[2016-09-24] MEDS: INSULIN ASPART 100unit/ml INJECTION SQ SCH ×3 (08:35→18:34)
[2016-09-24] MEDS: ENOXAPARIN 40 MG/0.4 ML INJECTION SQ SCH (08:35)
[2016-09-24] MEDS: ZINC GLUCONATE 50 MG TABLET PO SCH (08:36)
[2016-09-24] MEDS: POLYETHYL GLYCOL 3350 17gm PACKET PO SCH (08:36)
[2016-09-24] MEDS: CLOPIDOGREL 75 MG TABLET PO SCH (08:36)
[2016-09-24] MEDS: LACTOBACILLUS (15B cfu) CAPSULE PO SCH (08:36)
[2016-09-24] MEDS: MAGNESIUM OXIDE 400 MG TABLET PO SCH (08:37)
[2016-09-24] MEDS: ASCORBIC ACID 500 MG TABLET PO SCH (08:37)
[2016-09-24] MEDS: CALCIUM CITRATE 950 MG TABLET PO SCH (08:37)
[2016-09-24] MEDS: MULTI-VITAMIN + MINERAL TABLET PO SCH (08:37)
[2016-09-24] MEDS: PREGABALIN 100 MG CAPSULE PO SCH ×3 (08:37→20:51)
[2016-09-24] MEDS: LISINOPRIL 10 MG TABLET PO SCH (08:37)
[2016-09-24] MEDS: DULOXETINE 30 MG CAPSULE PO SCH (08:37)
--- NOTE | 2016-09-24 11:11 | Progress Note ---
<Tamara Quezada - Last Filed: 09/24/16 11:08> Subjective: Alysia is doing fairly well. She has no new complaints, though states that she fell in the shower yesterday. She denies any injuries, stating that she slid down the wall behind her. Her wound VAC was taken off, and when I asked her what happened to it, she states that she removed it so she could go smoke (she didn't think it would be a big deal). She states that she had to sign a form to smoke (which is an AMA form). She wants to talk to Dr. Iyer about the wound vac situation, and clarify how long it can be turned off (so she can shower or smoke, for example). Objective Vital signs: Temperature 97.0 F 09/24/16 00:00 Pulse Rate 85 09/24/16 08:00 Respiratory Rate 18 09/24/16 08:00 Blood Pressure 132/57 09/24/16 08:00 Pulse Oximetry 92 09/24/16 08:00 Oxygen Delivery Method Room Air Weight: 73.7 kg - Constitutional Present: no acute distress, well nourished, well developed - Routine HEENT Exam ENT: Present: oropharynx clear - Routine Respiratory Exam Present: CTA bilaterally - Routine Cardiovascular Exam Present: RRR, S1, S2 - Routine Abdominal Exam Present: soft, normoactive bowel sounds, non distended, non tender Comments: abdominal distention improved. - Routine Extremities Exam Present: edema (RLE) - Routine Musculoskeletal Exam Musculoskeletal: Present: moving extremities well, other (dressing to left stump ) - Routine Skin Exam Present: intact, dry, warm - Routine Neurological Exam Present: alert, oriented X3 Results - Labs CBC & Chem 7: 09/22/16 04:55 09/22/16 04:55 Assessment and Plan (1) Non-healing wound Current visit: Yes Status: Acute Assessment and Plan: Impression Infected, nonhealing wound of left BKA stump with culture growing Pseudomonas and Serratia marcescens sensitive to cefepime Mild hypernatremia, not POA, secondary to poor po intake Leukocytosis, POA - resolved Type 2 diabetes mellitus-currently well controlled on usual home insulin. Peripheral vascular disease History of bradycardia with normal EKG and troponin of via [facility] Mild urinary retention-no treatment required at this time, improved Constipation, improving Depression/anxiety History of gastric ulcer Irritable bowel syndrome Tobacco dependence, not willing to discuss cessation currently, declines nicotine supplementation PLAN Continue Cefepime IV q6h. Stop date is 09/30 and then can DC home with home health on 10/01/16. CBC and BMP ordered for tomorrow to follow-up on leukocytosis and mild hypernatremia Concern about overall wound healing given her decision to continue smoking and remove wound VAC on her own accord. Constipation - Improved. DM2 - Continue current insulin dosing. BGM stable. Sepsis Assessment - Evaluation Sepsis screening result: No Definite Risk Hospital Course Summary Disclaimer: The visit summary below is not to be considered part of the above Progress Note. Hospital Course: 09/21/16 ASSESSMENT Non-healing wound of left BKA stump and medial thigh wound Cx grew Pseudomonas and Serratia marcescens, sensitive to cefepime. S/P debridement LLE stump & medial thigh wound on 09/13/[address] Pike. Instill VAC with Vashe was placed with slow improvement. Regular VAC was placed on 09/20/16. PVD Bradycardia normal EKG and troponin at [facility] Urinary retention Constipation DM type 2 with peripheral neuropathy, insulin-dependent. Last Hgb A1c was 6.4% on 10/05/15. Depression/anxiety Hx gastric ulcer IBS PLAN Admit to [facility], swing bed status for wound care and IV antibiotics. Via [facility] records were reviewed, along with DC instructions: -Cefepime IV q6h. -PICC line change weekly & PRN -Change wound vac MWF, suction @ 125 mm Hg -F/U [address] Pike -Plan to return for autograft at a later date. Check CBC and BMP in am - WBC was elevated at 12.9 on 09/20/16. Repeat hgb A1c. Carb consistent diet. Monitor BG and continue home meds. Consult wound team for wound vac care. Constipation - MiraLAX, other PRN's available. Pain control - Percocet. Also requesting Baclofen and Lyrica, which she's been taking at home. Consult PT/OT. Tobacco use - consult RT for tobacco cessation. Nicotine patch. Pt inquiring about other pharmacologic options as well. I informed her that [facility] is a nonsmoking facility. Pt and family report concern about vascular status in RLE - recommend f/u with vascular surgeon. I informed them they would not recommend any procedures until this infection has cleared up. 09/21/2016-I reviewed this chart, the patient history, and the CORPORATE SALES MANAGER's/PA's documented findings as above. We discussed and formulated the assessment and plan as above with the additions below. I have seen and examined the patient independently.-Dr. Singh Patient states that she is doing fairly well. She does have some continued pain in the left leg where her wound is from her BKA. Percocet does control her pain. She states her appetite has been good. She denies any shortness of breath. She denies any nausea or vomiting. She denies any diarrhea. She did have some constipation but that has resolved. She states that it is a little difficult to start urination but after a few moments she is able to urinate without difficulties. She states she would like some medication to help her quit smoking. She is tried Chantix and Wellbutrin and neither of them helped in the past. Agree with continued cefepime IV every 6 for postop wound infection after BKA. She will need antibiotics through September 30. I did ask case management to have paperwork from infectious disease specialist faxed to us with those recommendations. The patient states that Dr. Funk has given her a medication in the past for itching that supposedly helps with smoking cessation. I have called and spoken with his nurse and she will call back with the name of this medication. Regarding urinary retention, the patient states this is fairly mild and has not caused her any difficulties in the past. She denies any symptoms of UTI. 09/22/16 Continue Cefepime IV q6h. Stop date is 07/31 and then can DC home with home health on 10/01/16. Leukocytosis - WBC normal today. Mild hypernatremia 09/23/16 Continue Cefepime IV q6h. Stop date is 09/30 and then can DC home with home health on 10/01/16. Leukocytosis - WBC normal today, monitor Mild hypernatremia, monitor Constipation - continue meds. Monitor for ileus. Improved. Tobacco cessation - Willing to try vaping but that is not an inpatient solution , has signed AMA form documenting risks to her health and is going out to smoke on her own, will continue to discuss with her. DM2 - Continue current insulin dosing. BGM stable. <BradleyCatalina Dominguez - Last Filed: 09/24/16 12:17> Objective Vital signs: Temperature 97.0 F 09/24/16 00:00 Pulse Rate 85 09/24/16 08:00 Respiratory Rate 18 09/24/16 08:00 Blood Pressure 132/57 09/24/16 08:00 Pulse Oximetry 92 09/24/16 08:00 Oxygen Delivery Method Room Air Results - Labs CBC & Chem 7: 09/22/16 04:55 09/22/16 04:55 Assessment and Plan Assessment and Plan: Patient was seen independently of Tamara, note reviewed as well as vitals, I/Os, medications and lab results. Agree with the plan above. High risk for poor wound healing and need for further debridement and further amputation due to ongoing tobacco use, taking off wound vac, etc. Will continue current antibiotics for now, have discussed the tobacco dependence multiple times now and she is not interested in quitting currently although she is considering trying vaping. Hospital Course Summary Disclaimer: The visit summary below is not to be considered part of the above Progress Note.
[2016-09-24] MEDS: BACLOFEN 10 MG TABLET PO PRN (20:52)
[2016-09-24] MEDS: ROSUVASTATIN 20 MG TABLET PO SCH (21:00)
[2016-09-24] MEDS: INSULIN DEGLUDEC SQ SCH (21:02)
[2016-09-25] MEDS: CEFEPIME 1 GM in NS 100 ML IV SCH ×4 (03:14→20:53)
[2016-09-25] MEDS: INSULIN ASPART 100unit/ml INJECTION SQ SCH ×3 (08:42→18:43)
[2016-09-25] MEDS: ENOXAPARIN 40 MG/0.4 ML INJECTION SQ SCH (08:42)
[2016-09-25] MEDS: DULOXETINE 30 MG CAPSULE PO SCH (08:43)
[2016-09-25] MEDS: PREGABALIN 100 MG CAPSULE PO SCH ×3 (08:43→20:50)
[2016-09-25] MEDS: CLOPIDOGREL 75 MG TABLET PO SCH (08:43)
[2016-09-25] MEDS: LACTOBACILLUS (15B cfu) CAPSULE PO SCH (08:44)
[2016-09-25] MEDS: MULTI-VITAMIN + MINERAL TABLET PO SCH (08:44)
[2016-09-25] MEDS: CALCIUM CITRATE 950 MG TABLET PO SCH (08:44)
[2016-09-25] MEDS: MAGNESIUM OXIDE 400 MG TABLET PO SCH (08:44)
[2016-09-25] MEDS: LISINOPRIL 10 MG TABLET PO SCH (08:45)
[2016-09-25] MEDS: ZINC GLUCONATE 50 MG TABLET PO SCH (08:45)
[2016-09-25] MEDS: ASCORBIC ACID 500 MG TABLET PO SCH (08:45)
[2016-09-25] MEDS: POLYETHYL GLYCOL 3350 17gm PACKET PO SCH (08:47)
--- NOTE | 2016-09-25 14:44 | Progress Note ---
<PilarTamara D - Last Filed: 09/25/16 14:40> Subjective: Alysia was seen during lunch. She denies new c/o but notices increasing abdominal bloating. It is worse on exam today - I considered ordering a KUB but patient refused, adding that "it's just poop". She states that she's having frequent loose stools and has a hx of IBS. She states that the swelling in her right leg is about the same but she's going to start to elevate it more. We discussed her labs - she stated that she knows she's dehydrated and has been trying to push fluids. I told her I'd like to repeat them tomorrow am. Initially, she refused, but agreed after I told her about risk for worsening infection/dehydration. Objective Vital signs: Temperature 97.7 F 09/25/16 07:38 Pulse Rate 91 09/25/16 07:38 Respiratory Rate 18 09/25/16 07:38 Blood Pressure 132/64 09/25/16 07:38 Pulse Oximetry 92 09/25/16 07:38 Oxygen Delivery Method Room Air Rhythm: Sinus Bradycardia Cardiac Ectopy: Trigeminal PVC's Weight: 74.5 kg - Constitutional Present: no acute distress, well nourished, well developed - Routine HEENT Exam ENT: Present: mucous membranes moist, oropharynx clear - Routine Respiratory Exam Present: CTA bilaterally - Routine Cardiovascular Exam Present: S1, S2 Comments: bradycardic and sounds like she's having trigeminal PVCs - Routine Abdominal Exam Present: non tender, distended. Absent: normoactive bowel sounds (hypoactive) - Routine Extremities Exam Present: edema (2+ RLL) - Routine Musculoskeletal Exam Musculoskeletal: Present: other (dressing to left BKA) - Routine Skin Exam Present: dry, warm - Routine Neurological Exam Present: alert, oriented X3 - Routine Psychiatric Exam Present: normal affect, normal thought process Results - Labs CBC & Chem 7: 09/25/16 05:20 09/25/16 05:20 Assessment and Plan (1) Non-healing wound Current visit: Yes Status: Acute Assessment and Plan: Impression Infected, nonhealing wound of left BKA stump with culture growing Pseudomonas and Serratia marcescens sensitive to cefepime Mild hypernatremia, not POA, secondary to poor po intake Leukocytosis, POA Type 2 diabetes mellitus-currently well controlled on usual home insulin. Peripheral vascular disease History of bradycardia with normal EKG and troponin of via [facility] Mild urinary retention-no treatment required at this time, improved Constipation, improving. Hx IBS. Depression/anxiety History of gastric ulcer Irritable bowel syndrome Tobacco dependence, not willing to discuss cessation currently, declines nicotine supplementation PLAN Increasing leukocytosis: Continue Cefepime IV q6h. Stop date is 09/30 and then can DC home with home health on 10/01/16. Awaiting recommendations from Dr. Iyer. Wound VAC not yet reapplied. Hypernatremia: Pt agreed to push fluids. Repeat in am but if worsens consider IVF. Constipation, concern for ileus: Offered suppository or laxative - she declined Continue MiraLAX daily; MOM PRN; start routine Senna+ Sepsis Assessment - Evaluation Sepsis screening result: No Definite Risk Hospital Course Summary Disclaimer: The visit summary below is not to be considered part of the above Progress Note. Hospital Course: 09/21/16 ASSESSMENT Non-healing wound of left BKA stump and medial thigh wound Cx grew Pseudomonas and Serratia marcescens, sensitive to cefepime. S/P debridement LLE stump & medial thigh wound on 09/13/[address] Pike. Instill VAC with Vashe was placed with slow improvement. Regular VAC was placed on 09/20/16. PVD Bradycardia normal EKG and troponin at [facility] Urinary retention Constipation DM type 2 with peripheral neuropathy, insulin-dependent. Last Hgb A1c was 6.4% on 10/05/15. Depression/anxiety Hx gastric ulcer IBS PLAN Admit to [facility], swing bed status for wound care and IV antibiotics. Via [facility] records were reviewed, along with DC instructions: -Cefepime IV q6h. -PICC line change weekly & PRN -Change wound vac MWF, suction @ 125 mm Hg -F/U [address] Pike -Plan to return for autograft at a later date. Check CBC and BMP in am - WBC was elevated at 12.9 on 09/20/16. Repeat hgb A1c. Carb consistent diet. Monitor BG and continue home meds. Consult wound team for wound vac care. Constipation - MiraLAX, other PRN's available. Pain control - Percocet. Also requesting Baclofen and Lyrica, which she's been taking at home. Consult PT/OT. Tobacco use - consult RT for tobacco cessation. Nicotine patch. Pt inquiring about other pharmacologic options as well. I informed her that [facility] is a nonsmoking facility. Pt and family report concern about vascular status in RLE - recommend f/u with vascular surgeon. I informed them they would not recommend any procedures until this infection has cleared up. 09/21/2016-I reviewed this chart, the patient history, and the IMPLEMENTATION DIRECTOR's/PA's documented findings as above. We discussed and formulated the assessment and plan as above with the additions below. I have seen and examined the patient independently.-Dr. Singh Patient states that she is doing fairly well. She does have some continued pain in the left leg where her wound is from her BKA. Percocet does control her pain. She states her appetite has been good. She denies any shortness of breath. She denies any nausea or vomiting. She denies any diarrhea. She did have some constipation but that has resolved. She states that it is a little difficult to start urination but after a few moments she is able to urinate without difficulties. She states she would like some medication to help her quit smoking. She is tried Chantix and Wellbutrin and neither of them helped in the past. Agree with continued cefepime IV every 6 for postop wound infection after BKA. She will need antibiotics through September 30. I did ask case management to have paperwork from infectious disease specialist faxed to us with those recommendations. The patient states that Dr. Funk has given her a medication in the past for itching that supposedly helps with smoking cessation. I have called and spoken with his nurse and she will call back with the name of this medication. Regarding urinary retention, the patient states this is fairly mild and has not caused her any difficulties in the past. She denies any symptoms of UTI. 09/22/16 Continue Cefepime IV q6h. Stop date is 07/31 and then can DC home with home health on 10/01/16. Leukocytosis - WBC normal today. Mild hypernatremia 09/23/16 Continue Cefepime IV q6h. Stop date is 09/30 and then can DC home with home health on 10/01/16. Leukocytosis - WBC normal today, monitor Mild hypernatremia, monitor Constipation - continue meds. Monitor for ileus. Improved. Tobacco cessation - Willing to try vaping but that is not an inpatient solution , has signed AMA form documenting risks to her health and is going out to smoke on her own, will continue to discuss with her. DM2 - Continue current insulin dosing. BGM stable. 09/25/16 Increasing leukocytosis: Awaiting recommendations from Dr. Iyer. Wound VAC not yet reapplied. Hypernatremia: Pt agreed to push fluids. Repeat in am but if worsens consider IVF. Constipation, concern for ileus: Offered suppository or laxative - she declined Continue MiraLAX daily; MOM PRN; start routine Senna+ <Ricky Cabrera - Last Filed: 09/25/16 16:41> Objective Vital signs: Temperature 97.7 F 09/25/16 07:38 Pulse Rate 91 09/25/16 07:38 Respiratory Rate 18 09/25/16 07:38 Blood Pressure 132/64 09/25/16 07:38 Pulse Oximetry 92 09/25/16 07:38 Oxygen Delivery Method Room Air Results - Labs CBC & Chem 7: 09/25/16 05:20 09/25/16 05:20 Assessment and Plan (1) Non-healing wound Current visit: Yes Status: Acute DVT Prophylaxis: Lovenox Assessment and Plan: Impression Infected, nonhealing wound of left BKA stump with culture growing Pseudomonas and Serratia marcescens sensitive to cefepime Mild hypernatremia, not POA, secondary to poor po intake Leukocytosis, POA Type 2 diabetes mellitus-currently well controlled on usual home insulin. Peripheral vascular disease History of bradycardia with normal EKG and troponin of via [facility] Mild urinary retention-no treatment required at this time, improved Constipation, improving. Hx IBS. Depression/anxiety History of gastric ulcer Irritable bowel syndrome Tobacco dependence, not willing to discuss cessation currently, declines nicotine supplementation Have independently interviewed and examined pt. Chart reviewed. Case discussed with CM and my IMPLEMENTATION DIRECTOR. Care plan developed with my supervision; agree with above. Doing okay. Feeling full and bloated to abdomen. No nausea. Eating well. Blood sugars stable. Breathing stable-not having SOA, cough or congestion. Lungs: clear, no crackles/wheezes/distress CV: regular AB: soft, slight distention, BS present MSE: awake alert appropriate Plan: Continue with antibiotics. Continue with wound care-anticipate wound vac reapplied. Encourage oral intake. Continue glycemic control. Discussed with CM about potential discharge to home for antibiotics and wound care-do not feel pt would do well from a compliance stand point (likely would miss antibiotics as they have to be given every 6 hours-likely would sleep through at least 1 dose a day due to the timing interval). Hospital Course Summary Disclaimer: The visit summary below is not to be considered part of the above Progress Note. Addendum entered and electronically signed by Tamara Quezada, SANA 09/25/16 14: 51: Check EKG due to abnormal rhythm.
[2016-09-25] MEDS: SALINE FLUSH 10ml SYRINGE IV PRN (16:27)
[2016-09-25] MEDS: SENNA + DOCUSATE TABLET PO SCH ×2 (20:50→21:08)
[2016-09-25] MEDS: INSULIN DEGLUDEC SQ SCH ×2 (20:51→22:00)
[2016-09-25] MEDS: Oxycodone/Acetaminophen 5/325 1 TAB PO PRN (20:52)
[2016-09-25] MEDS: ROSUVASTATIN 20 MG TABLET PO SCH (22:13)
[2016-09-26] MEDS: Oxycodone/Acetaminophen 5/325 1 TAB PO PRN ×2 (02:55→21:59)
[2016-09-26] MEDS: CEFEPIME 1 GM in NS 100 ML IV SCH ×4 (02:55→22:42)
--- NOTE | 2016-09-26 08:21 | General Surgery Progress Note ---
Subjective Patient reports: tolerating a regular diet, no bowel movement (since 09/23, Miralax and Senna Plus was given this am, awaiting results), afebrile Narrative: States she is frustrated with conflicting reports regarding wound VAC. It was removed over the weekend because she would unhook it frequently to go AMA to smoke. Aquacel and Mepilex applied. She now states she was told that she could take the IV pole with the VAC machine with her out to smoke, but other staff say she cannot. She expected the VAC to be reapplied yesterday. States she was allowed to take the VAC outside at [facility] and wants to do so here. Otherwise, she is without complaints. - Vital Signs Last Vital Signs Temp 97.0 F 09/26/16 07:57 Pulse 80 09/26/16 07:57 Resp 18 09/26/16 07:57 BP 132/58 09/26/16 07:57 Pulse Ox 97 09/26/16 07:57 - Laboratory Result Diagrams: 09/26/16 05:56 09/26/16 05:56 - Normal Exam General: awake, alert, no acute distress Cardiovascular: other (some PVC's) Respiratory: clear bilaterally, no labored breathing Abdominal: incision(s) (Left BKA stump with Aquacel and Mepilex in place about 25 % of foam moist. folding back the dressing, wound is moist, soft exudate at the base.) Psychiatric: normal affect Wound/Stoma/Drain Assessment - Wound Management Left Distal Leg Dressing Change Date: 09/23/16 Dressing Change Time: 18:48 Assessment and Plan (1) Tobacco dependence Current Visit: Yes Status: Acute (2) Non-healing wound Current Visit: Yes Status: Chronic Plan: Dressing change to left BKA scheduled for today. Dr. Iyer and hospital policy/administration will evaluate her situation and advice course of action regarding VAC vs specialty dressings. Hospital Course Summary Disclaimer: The visit summary below is not to be considered part of the above Progress Note. Hospital Course: 09/21/16 ASSESSMENT Non-healing wound of left BKA stump and medial thigh wound Cx grew Pseudomonas and Serratia marcescens, sensitive to cefepime. S/P debridement LLE stump & medial thigh wound on 09/13/[address] Pike. Instill VAC with Vashe was placed with slow improvement. Regular VAC was placed on 09/20/16. PVD [facility] Urinary retention Constipation DM type 2 with peripheral neuropathy, insulin-dependent. Last Hgb A1c was 6.4% on 10/05/15. Depression/anxiety Hx gastric ulcer IBS PLAN Admit to [facility], swing bed status for wound care and IV antibiotics. Via [facility] records were reviewed, along with DC instructions: -Cefepime IV q6h. -PICC line change weekly & PRN -Change wound vac MWF, suction @ 125 mm Hg -F/U [address] Pike -Plan to return for autograft at a later date. Check CBC and BMP in am - WBC was elevated at 12.9 on 09/20/16. Repeat hgb A1c. Carb consistent diet. Monitor BG and continue home meds. Consult wound team for wound vac care. Constipation - MiraLAX, other PRN's available. Pain control - Percocet. Also requesting Baclofen and Lyrica, which she's been taking at home. Consult PT/OT. Tobacco use - consult RT for tobacco cessation. Nicotine patch. Pt inquiring about other pharmacologic options as well. I informed her that [facility] is a nonsmoking facility. Pt and family report concern about vascular status in RLE - recommend f/u with vascular surgeon. I informed them they would not recommend any procedures until this infection has cleared up. 09/21/2016-I reviewed this chart, the patient history, and the SHANK CARRIER's/PA's documented findings as above. We discussed and formulated the assessment and plan as above with the additions below. I have seen and examined the patient independently.-Dr. Singh Patient states that she is doing fairly well. She does have some continued pain in the left leg where her wound is from her BKA. Percocet does control her pain. She states her appetite has been good. She denies any shortness of breath. She denies any nausea or vomiting. She denies any diarrhea. She did have some constipation but that has resolved. She states that it is a little difficult to start urination but after a few moments she is able to urinate without difficulties. She states she would like some medication to help her quit smoking. She is tried Chantix and Wellbutrin and neither of them helped in the past. Agree with continued cefepime IV every 6 for postop wound infection after BKA. She will need antibiotics through September 30. I did ask case management to have paperwork from infectious disease specialist faxed to us with those recommendations. The patient states that Dr. Funk has given her a medication in the past for itching that supposedly helps with smoking cessation. I have called and spoken with his nurse and she will call back with the name of this medication. Regarding urinary retention, the patient states this is fairly mild and has not caused her any difficulties in the past. She denies any symptoms of UTI. 09/22/16 Continue Cefepime IV q6h. Stop date is 07/31 and then can DC home with home health on 10/01/16. Leukocytosis - WBC normal today. Mild hypernatremia 09/23/16 Continue Cefepime IV q6h. Stop date is 09/30 and then can DC home with home health on 10/01/16. Leukocytosis - WBC normal today, monitor Mild hypernatremia, monitor Constipation - continue meds. Monitor for ileus. Improved. Tobacco cessation - Willing to try vaping but that is not an inpatient solution , has signed AMA form documenting risks to her health and is going out to smoke on her own, will continue to discuss with her. DM2 - Continue current insulin dosing. BGM stable. 09/25/16 Increasing leukocytosis: Awaiting recommendations from Dr. Iyer. Wound VAC not yet reapplied. Hypernatremia: Pt agreed to push fluids. Repeat in am but if worsens consider IVF. Constipation, concern for ileus: Offered suppository or laxative - she declined Continue MiraLAX daily; MOM PRN; start routine Senna+ Sepsis Assessment - Evaluation Sepsis screening result: No Definite Risk
[2016-09-26] MEDS: POLYETHYL GLYCOL 3350 17gm PACKET PO SCH (08:23)
[2016-09-26] MEDS: INSULIN ASPART 100unit/ml INJECTION SQ SCH ×3 (08:23→18:32)
[2016-09-26] MEDS: SALINE FLUSH 10ml SYRINGE IV PRN (08:23)
[2016-09-26] MEDS: SENNA + DOCUSATE TABLET PO SCH ×2 (08:24→21:59)
[2016-09-26] MEDS: LISINOPRIL 10 MG TABLET PO SCH (08:24)
[2016-09-26] MEDS: CALCIUM CITRATE 950 MG TABLET PO SCH ×2 (08:24)
[2016-09-26] MEDS: ZINC GLUCONATE 50 MG TABLET PO SCH (08:24)
[2016-09-26] MEDS: ASCORBIC ACID 500 MG TABLET PO SCH (08:24)
[2016-09-26] MEDS: CLOPIDOGREL 75 MG TABLET PO SCH (08:24)
[2016-09-26] MEDS: PREGABALIN 100 MG CAPSULE PO SCH ×3 (08:25→21:59)
[2016-09-26] MEDS: MAGNESIUM OXIDE 400 MG TABLET PO SCH (08:25)
[2016-09-26] MEDS: MULTI-VITAMIN + MINERAL TABLET PO SCH (08:25)
[2016-09-26] MEDS: LACTOBACILLUS (15B cfu) CAPSULE PO SCH (08:25)
[2016-09-26] MEDS: DULOXETINE 30 MG CAPSULE PO SCH (09:11)
[2016-09-26] MEDS: ENOXAPARIN 40 MG/0.4 ML INJECTION SQ SCH (09:12)
--- NOTE | 2016-09-26 11:55 | Progress Note ---
<Sonal Watson V - Last Filed: 09/26/16 11:36> Subjective: Fred is seen this morning for routine follow-up. Patient verbalizes her frustration that she would like to able to go outside and smoke whenever she desires. She undid her own wound VAC yesterday and it has not been placed back on. Discussed the importance of compliance for maximizing wound healing. She has refused to allow nursing staff to accompany her when leaving the unit. This is being addressed by unit management. Otherwise, Alysia states that she is feeling good without significant complaints. Her appetite has been good, and no difficulty with bowel movements. Objective Vital signs: Temperature 97.0 F 09/26/16 07:57 Pulse Rate 80 09/26/16 07:57 Respiratory Rate 18 09/26/16 07:57 Blood Pressure 132/58 09/26/16 07:57 Pulse Oximetry 97 09/26/16 07:57 Oxygen Delivery Method Room Air Rhythm: Sinus Bradycardia Cardiac Ectopy: Trigeminal PVC's Weight: 74.5 kg - Constitutional Present: well nourished, well developed - Routine HEENT Exam Eye: Present: EOMI ENT: Present: mucous membranes moist, dentition normal - Routine Respiratory Exam Present: CTA bilaterally. Absent: wheezes - Routine Cardiovascular Exam Present: RRR. Absent: murmur - Routine Abdominal Exam Present: soft, normoactive bowel sounds, non distended. Absent: tenderness - Routine Extremities Exam Present: normal capillary refill Comments: LLE BKA with dressing intact - Routine Skin Exam Present: intact, dry, warm - Routine Neurological Exam Present: alert, oriented X3, CN II-XII intact - Routine Lymphatic Exam Lymphatic: Absent: adenopathy - Routine Psychiatric Exam Present: normal affect, normal thought process Results - Labs CBC & Chem 7: 09/26/16 05:56 09/26/16 05:56 Assessment and Plan (1) Non-healing wound Current visit: Yes Status: Chronic Assessment and Plan: Impression Infected, nonhealing wound of left BKA stump with culture growing Pseudomonas and Serratia marcescens sensitive to cefepime Mild hypernatremia, not POA, secondary to poor po intake Leukocytosis, POA Type 2 diabetes mellitus-currently well controlled on usual home insulin. Peripheral vascular disease History of bradycardia with normal EKG and troponin of via [facility] Mild urinary retention-no treatment required at this time, improved Constipation, improving. Hx IBS. Depression/anxiety History of gastric ulcer Irritable bowel syndrome Tobacco dependence, not willing to discuss cessation currently, declines nicotine supplementation 09/26/16- Plan Continued Leukocytosis, WBC count 16.7. Discussed importance of wound vac compliance. Awaiting evaluation from Dr Iyer to determine if wound Vac will be replaced. Intended you on IV cefepime for antimicrobial coverage. Stop date reported 09/30. Continue to work on glycemic control, fasting blood sugar this morning is 107. Continue Tresiba and Novolog. Monitor blood pressure and continue on lisinopril Lovenox subcutaneous daily for DVT prophylaxis Did review chemistry panel noted, hyperkalemia, which is likely secondary to specimen hemolysis,Will recheck tomorrow. Sepsis Assessment - Evaluation Sepsis screening result: No Definite Risk Hospital Course Summary Disclaimer: The visit summary below is not to be considered part of the above Progress Note. Hospital Course: 09/21/16 ASSESSMENT Non-healing wound of left BKA stump and medial thigh wound Cx grew Pseudomonas and Serratia marcescens, sensitive to cefepime. S/P debridement LLE stump & medial thigh wound on 09/13/[address] Pike. Instill VAC with Vashe was placed with slow improvement. Regular VAC was placed on 09/20/16. PVD Bradycardia normal EKG and troponin at [facility] Urinary retention Constipation DM type 2 with peripheral neuropathy, insulin-dependent. Last Hgb A1c was 6.4% on 10/05/15. Depression/anxiety Hx gastric ulcer IBS PLAN Admit to [facility], swing bed status for wound care and IV antibiotics. [facility] records were reviewed, along with DC instructions: -Cefepime IV q6h. -PICC line change weekly & PRN -Change wound vac MWF, suction @ 125 mm Hg -F/U [address] Pike -Plan to return for autograft at a later date. Check CBC and BMP in am - WBC was elevated at 12.9 on 09/20/16. Repeat hgb A1c. Carb consistent diet. Monitor BG and continue home meds. Consult wound team for wound vac care. Constipation - MiraLAX, other PRN's available. Pain control - Percocet. Also requesting Baclofen and Lyrica, which she's been taking at home. Consult PT/OT. Tobacco use - consult RT for tobacco cessation. Nicotine patch. Pt inquiring about other pharmacologic options as well. I informed her that [facility] is a nonsmoking facility. Pt and family report concern about vascular status in RLE - recommend f/u with vascular surgeon. I informed them they would not recommend any procedures until this infection has cleared up. 09/21/2016-I reviewed this chart, the patient history, and the FRAME BUILDER's/PA's documented findings as above. We discussed and formulated the assessment and plan as above with the additions below. I have seen and examined the patient independently.-Dr. Singh Patient states that she is doing fairly well. She does have some continued pain in the left leg where her wound is from her BKA. Percocet does control her pain. She states her appetite has been good. She denies any shortness of breath. She denies any nausea or vomiting. She denies any diarrhea. She did have some constipation but that has resolved. She states that it is a little difficult to start urination but after a few moments she is able to urinate without difficulties. She states she would like some medication to help her quit smoking. She is tried Chantix and Wellbutrin and neither of them helped in the past. Agree with continued cefepime IV every 6 for postop wound infection after BKA. She will need antibiotics through September 30. I did ask case management to have paperwork from infectious disease specialist faxed to us with those recommendations. The patient states that Dr. Funk has given her a medication in the past for itching that supposedly helps with smoking cessation. I have called and spoken with his nurse and she will call back with the name of this medication. Regarding urinary retention, the patient states this is fairly mild and has not caused her any difficulties in the past. She denies any symptoms of UTI. 09/22/16 Continue Cefepime IV q6h. Stop date is 07/31 and then can DC home with home health on 10/01/16. Leukocytosis - WBC normal today. Mild hypernatremia 09/23/16 Continue Cefepime IV q6h. Stop date is 09/30 and then can DC home with home health on 10/01/16. Leukocytosis - WBC normal today, monitor Mild hypernatremia, monitor Constipation - continue meds. Monitor for ileus. Improved. Tobacco cessation - Willing to try vaping but that is not an inpatient solution , has signed AMA form documenting risks to her health and is going out to smoke on her own, will continue to discuss with her. DM2 - Continue current insulin dosing. BGM stable. 09/25/16 Increasing leukocytosis: Awaiting recommendations from Dr. Iyer. Wound VAC not yet reapplied. Hypernatremia: Pt agreed to push fluids. Repeat in am but if worsens consider IVF. Constipation, concern for ileus: Offered suppository or laxative - she declined Continue MiraLAX daily; MOM PRN; start routine Senna+ 09/26/16- Plan Continued Leukocytosis, WBC count 16.7. Discussed importance of wound vac compliance. Awaiting evaluation from Dr Iyer to determine if wound Vac will be replaced. Intended you on IV cefepime for antimicrobial coverage. Stop date reported 09/30. Continue to work on glycemic control, fasting blood sugar this morning is 107. Continue Tresiba and Novolog. Monitor blood pressure and continue on lisinopril Lovenox subcutaneous daily for DVT prophylaxis Did review chemistry panel noted, hyperkalemia, which is likely secondary to specimen hemolysis,Will recheck tomorrow. <Ricky Cabrera D - Last Filed: 09/26/16 20:26> Objective Vital signs: Temperature 96.4 F L 09/26/16 15:13 Pulse Rate 86 09/26/16 15:13 Respiratory Rate 18 09/26/16 15:13 Blood Pressure 129/49 09/26/16 15:13 Pulse Oximetry 97 09/26/16 15:13 Oxygen Delivery Method Room Air Height/Weight/BMI: Height 1.63 m Weight 74.5 kg Body Mass Index 28.3 Results - Labs CBC & Chem 7: 09/26/16 05:56 09/26/16 05:56 Assessment and Plan (1) Non-healing wound Current visit: Yes Status: Chronic Assessment and Plan: Impression Infected, nonhealing wound of left BKA stump with culture growing Pseudomonas and Serratia marcescens sensitive to cefepime Mild hypernatremia, not POA, secondary to poor po intake Leukocytosis, POA Type 2 diabetes mellitus-currently well controlled on usual home insulin. Peripheral vascular disease History of bradycardia with normal EKG and troponin of via [facility] Mild urinary retention-no treatment required at this time, improved Constipation, improving. Hx IBS. Depression/anxiety History of gastric ulcer Irritable bowel syndrome Tobacco dependence, not willing to discuss cessation currently, declines nicotine supplementation Came by this evening to check on patient - not in room. Nursing notes patient out smoking. This is the 6th time she has been out today. Did discuss case with Dr Iyer - he report tried to see patient, but not in room. He does not feel wound vac will be of any benefit if pt continues to remove vac to go out to smoke. Will continue with antibiotics. Recheck lab in am. Hospital Course Summary Disclaimer: The visit summary below is not to be considered part of the above Progress Note.
[2016-09-26] MEDS: INSULIN DEGLUDEC SQ SCH ×4 (14:47→22:01)
[2016-09-26] MEDS: ROSUVASTATIN 20 MG TABLET PO SCH ×4 (14:47→22:00)
--- NOTE | 2016-09-26 19:59 | Progress Note ---
DATE 09/26/2016 FINDINGS Mrs. Rosa this evening was in good spirits. She denied any increasing pain to her left lower extremity. She was requesting that a wound VAC be replaced. EXAM VITAL SIGNS: Afebrile, normotensive. Current vitals include temperature 96.4, pulse 86, respirations 18, blood pressure 129/49, SAO2 97% on room air. CHEST: Clear to auscultation bilaterally. HEART: Regular rate and rhythm. Normal S1 and S2 without gallops, murmurs or clicks. EXTREMITIES: Attention was focused to her left lower extremity. Dressings had been just recently reapplied. Dressings were lifted up so that her wounds could be evaluated. Marked improvement was noted in regards to the wound involving her left stump. Good granulation tissue throughout. There is no significant residual necrotic tissue present. No evidence of purulence within the wound. No evidence for significant periwound erythema. ASSESSMENT 71-year-old female status post left BKA with ongoing surgical wounds being present. Patient with history for Pseudomonas infection. Patient noncompliant in nature. PLAN Over the course of the weekend the patient was disconnecting her wound VAC and going out to smoke on an almost every-hour basis. The patient was informed that we do have a nonsmoking facility. She stated that she really does not care and that she has to continue to smoke at this time. Patient is requesting that I place a wound VAC back on her leg and have staff escort her out so that she could continue to smoke. I informed the patient that I did not feel that it was in her best interest to continue to smoke. Furthermore, as stated above , I informed the patient that our hospital and its surrounding grounds are a nonsmoking facility and that she is "breaking the rules." I informed the patient that we could not have staff escort her outside so that she could continue with her wound VAC and smoke. I informed the patient that I would be more than happy to replace her wound VAC if she would agree to stay in her room and not go out to smoke on an every-hour basis. Patient states that she was not willing to "not smoke." Will continue with local wound dressings at this point in time. From a laboratory standpoint it was noted that there was a slight increase in her white count. From a wound standpoint I do not feel this increasing leukocytosis is a result of increasing infection from her wounds. I do not see any current physical findings to suggest increasing infection. Recommend continuing current care at this time. ROSEMARY
[2016-09-26] MEDS: BACLOFEN 10 MG TABLET PO PRN (22:40)
[2016-09-26] MEDS: NS FLUSH BAG 500ml IV PRN (22:43)
[2016-09-27] MEDS: SALINE FLUSH 10ml SYRINGE IV PRN ×4 (03:48→21:43)
[2016-09-27] MEDS: CEFEPIME 1 GM in NS 100 ML IV SCH ×4 (03:48→21:39)
--- NOTE | 2016-09-27 08:34 | General Surgery Progress Note ---
Subjective Narrative: She wants to wear her t-shirts, not hospital gowns. She is to wear a yellow gown for fall risk and refuses yellow, will wear only blue. Still smoking frequently. She is concerned about her flexed knee, she would like a prosthesis at some point, she also does not want to lie prone, which would help straighten the knee. Wants to get home to her cat. - Vital Signs Last Vital Signs Temp 96.5 F L 09/27/16 07:59 Pulse 78 09/27/16 07:59 Resp 16 09/27/16 07:59 BP 130/63 09/27/16 07:59 Pulse Ox 98 09/27/16 07:59 - Laboratory Result Diagrams: 09/27/16 04:43 09/27/16 04:43 - Abnormal Exam Skin: Mepilex on stump and medial thigh dry and in tact. Stump tender to moderate palpation, no pain with light palpation. Additional Abnormal Findings: Knee remains chronically bent, painful to try to straighten it. Assessment and Plan (1) Non-healing wound Current Visit: Yes Status: Chronic Assessment and plan: continue specialty dressings, change every 3-5 days (2) Knee joint contracture Current Visit: Yes Status: Chronic Qualifiers: Laterality: left Qualified Code(s): M24.562 - Contracture, left knee Assessment and plan: will order PT, but fear she will be non-compliant with recommendations (3) Tobacco dependence Current Visit: Yes Status: Acute Hospital Course Summary Disclaimer: The visit summary below is not to be considered part of the above Progress Note. Hospital Course: 09/21/16 ASSESSMENT Non-healing wound of left BKA stump and medial thigh wound Cx grew Pseudomonas and Serratia marcescens, sensitive to cefepime. S/P debridement LLE stump & medial thigh wound on 09/13/[address] Pike. Instill VAC with Vashe was placed with slow improvement. Regular VAC was placed on 09/20/16. PVD Bradycardia normal EKG and troponin at [facility] Urinary retention Constipation DM type 2 with peripheral neuropathy, insulin-dependent. Last Hgb A1c was 6.4% on 10/05/15. Depression/anxiety Hx gastric ulcer IBS PLAN Admit to [facility], swing bed status for wound care and IV antibiotics. [facility] records were reviewed, along with DC instructions: -Cefepime IV q6h. -PICC line change weekly & PRN -Change wound vac MWF, suction @ 125 mm Hg -F/U [address] Pike -Plan to return for autograft at a later date. Check CBC and BMP in am - WBC was elevated at 12.9 on 09/20/16. Repeat hgb A1c. Carb consistent diet. Monitor BG and continue home meds. Consult wound team for wound vac care. Constipation - MiraLAX, other PRN's available. Pain control - Percocet. Also requesting Baclofen and Lyrica, which she's been taking at home. Consult PT/OT. Tobacco use - consult RT for tobacco cessation. Nicotine patch. Pt inquiring about other pharmacologic options as well. I informed her that [facility] is a nonsmoking facility. Pt and family report concern about vascular status in RLE - recommend f/u with vascular surgeon. I informed them they would not recommend any procedures until this infection has cleared up. 09/21/2016-I reviewed this chart, the patient history, and the REGISTERED ACCOUNT ADMINISTRATOR's/PA's documented findings as above. We discussed and formulated the assessment and plan as above with the additions below. I have seen and examined the patient independently.-Dr. Singh Patient states that she is doing fairly well. She does have some continued pain in the left leg where her wound is from her BKA. Percocet does control her pain. She states her appetite has been good. She denies any shortness of breath. She denies any nausea or vomiting. She denies any diarrhea. She did have some constipation but that has resolved. She states that it is a little difficult to start urination but after a few moments she is able to urinate without difficulties. She states she would like some medication to help her quit smoking. She is tried Chantix and Wellbutrin and neither of them helped in the past. Agree with continued cefepime IV every 6 for postop wound infection after BKA. She will need antibiotics through September 30. I did ask case management to have paperwork from infectious disease specialist faxed to us with those recommendations. The patient states that Dr. Funk has given her a medication in the past for itching that supposedly helps with smoking cessation. I have called and spoken with his nurse and she will call back with the name of this medication. Regarding urinary retention, the patient states this is fairly mild and has not caused her any difficulties in the past. She denies any symptoms of UTI. 09/22/16 Continue Cefepime IV q6h. Stop date is 07/31 and then can DC home with home health on 10/01/16. Leukocytosis - WBC normal today. Mild hypernatremia 09/23/16 Continue Cefepime IV q6h. Stop date is 09/30 and then can DC home with home health on 10/01/16. Leukocytosis - WBC normal today, monitor Mild hypernatremia, monitor Constipation - continue meds. Monitor for ileus. Improved. Tobacco cessation - Willing to try vaping but that is not an inpatient solution , has signed AMA form documenting risks to her health and is going out to smoke on her own, will continue to discuss with her. DM2 - Continue current insulin dosing. BGM stable. 09/25/16 Increasing leukocytosis: Awaiting recommendations from Dr. Iyer. Wound VAC not yet reapplied. Hypernatremia: Pt agreed to push fluids. Repeat in am but if worsens consider IVF. Constipation, concern for ileus: Offered suppository or laxative - she declined Continue MiraLAX daily; MOM PRN; start routine Senna+ 09/26/16- Plan Continued Leukocytosis, WBC count 16.7. Discussed importance of wound vac compliance. Awaiting evaluation from Dr Iyer to determine if wound Vac will be replaced. Intended you on IV cefepime for antimicrobial coverage. Stop date reported 09/30. Continue to work on glycemic control, fasting blood sugar this morning is 107. Continue Tresiba and Novolog. Monitor blood pressure and continue on lisinopril Lovenox subcutaneous daily for DVT prophylaxis Did review chemistry panel noted, hyperkalemia, which is likely secondary to specimen hemolysis,Will recheck tomorrow. Sepsis Assessment - Evaluation Sepsis screening result: No Definite Risk
[2016-09-27] MEDS: INSULIN ASPART 100unit/ml INJECTION SQ SCH ×3 (08:35→19:05)
[2016-09-27] MEDS: DULOXETINE 30 MG CAPSULE PO SCH (08:36)
[2016-09-27] MEDS: ZINC GLUCONATE 50 MG TABLET PO SCH (08:36)
[2016-09-27] MEDS: PREGABALIN 100 MG CAPSULE PO SCH ×3 (08:36→21:47)
[2016-09-27] MEDS: CLOPIDOGREL 75 MG TABLET PO SCH (08:36)
[2016-09-27] MEDS: MAGNESIUM OXIDE 400 MG TABLET PO SCH (08:36)
[2016-09-27] MEDS: ASCORBIC ACID 500 MG TABLET PO SCH (08:36)
[2016-09-27] MEDS: LISINOPRIL 10 MG TABLET PO SCH (08:36)
[2016-09-27] MEDS: CALCIUM CITRATE 950 MG TABLET PO SCH (08:37)
[2016-09-27] MEDS: ENOXAPARIN 40 MG/0.4 ML INJECTION SQ SCH (08:37)
[2016-09-27] MEDS: POLYETHYL GLYCOL 3350 17gm PACKET PO SCH (08:37)
[2016-09-27] MEDS: LACTOBACILLUS (15B cfu) CAPSULE PO SCH (08:37)
[2016-09-27] MEDS: SENNA + DOCUSATE TABLET PO SCH ×2 (08:40→21:44)
[2016-09-27] MEDS: MULTI-VITAMIN + MINERAL TABLET PO SCH (08:40)
--- NOTE | 2016-09-27 18:21 | Progress Note ---
DATE 09/27/2016 FINDINGS Upon walking through the parking lot this evening to enter the hospital I did see Mrs. Rosa out in the parking lot smoking. She was not in her room on evening rounds. I therefore have not seen the patient today on rounds. ROSEMARY
[2016-09-27] MEDS: NS FLUSH BAG 500ml IV PRN (21:43)
[2016-09-27] MEDS: ROSUVASTATIN 20 MG TABLET PO SCH (21:44)
[2016-09-27] MEDS: INSULIN DEGLUDEC SQ SCH (21:44)
[2016-09-28] MEDS: CEFEPIME 1 GM in NS 100 ML IV SCH ×4 (02:56→20:16)
[2016-09-28] MEDS: SALINE FLUSH 10ml SYRINGE IV PRN ×4 (02:57→20:15)
[2016-09-28] MEDS: DULOXETINE 30 MG CAPSULE PO SCH (08:04)
[2016-09-28] MEDS: INSULIN ASPART 100unit/ml INJECTION SQ SCH ×3 (08:04→18:14)
[2016-09-28] MEDS: CLOPIDOGREL 75 MG TABLET PO SCH (08:04)
[2016-09-28] MEDS: ASCORBIC ACID 500 MG TABLET PO SCH (08:05)
[2016-09-28] MEDS: MULTI-VITAMIN + MINERAL TABLET PO SCH (08:05)
[2016-09-28] MEDS: ZINC GLUCONATE 50 MG TABLET PO SCH (08:05)
[2016-09-28] MEDS: LISINOPRIL 10 MG TABLET PO SCH (08:05)
[2016-09-28] MEDS: CALCIUM CITRATE 950 MG TABLET PO SCH (08:05)
[2016-09-28] MEDS: MAGNESIUM OXIDE 400 MG TABLET PO SCH (08:05)
[2016-09-28] MEDS: PREGABALIN 100 MG CAPSULE PO SCH ×3 (08:05→20:16)
[2016-09-28] MEDS: LACTOBACILLUS (15B cfu) CAPSULE PO SCH (08:05)
[2016-09-28] MEDS: ENOXAPARIN 40 MG/0.4 ML INJECTION SQ SCH (08:06)
[2016-09-28] MEDS: POLYETHYL GLYCOL 3350 17gm PACKET PO SCH (08:19)
[2016-09-28] MEDS: SENNA + DOCUSATE TABLET PO SCH ×2 (08:19→21:31)
--- NOTE | 2016-09-28 19:02 | Progress Note ---
Subjective: F/U: Infected, nonhealing wound of left BKA stump with culture growing Pseudomonas and Serratia marcescens sensitive to cefepime Doing okay overall. No f/c. Notes some discomfort to her stump when stands, but pain decreased in general. Breathing stable. Eating well. Stools moving. Going out to smoke frequently. Objective Vital signs: Temperature 97.1 F 09/28/16 15:49 Pulse Rate 80 09/28/16 15:49 Respiratory Rate 16 09/28/16 15:49 Blood Pressure 117/56 09/28/16 15:49 Pulse Oximetry 97 09/28/16 15:49 Oxygen Delivery Method Room Air Cardiac Ectopy: Trigeminal PVC's Height/Weight/BMI: Height 1.63 m Weight 75.5 kg Body Mass Index 28.3 - Constitutional Present: no acute distress, well nourished, well developed - Routine HEENT Exam Head: Present: normocephalic, atraumatic Eye: Present: EOMI, PERRL ENT: Present: mucous membranes moist - Routine Respiratory Exam Present: decreased breath sounds. Absent: respiratory distress, rhonchi, wheezes, crackles - Routine Cardiovascular Exam Present: RRR, no murmur - Routine Abdominal Exam Present: soft, normoactive bowel sounds, non distended, non tender - Routine Extremities Exam Present: edema (+2 edema of RLE). Absent: cyanosis, clubbing Comments: Left leg with BKA - wound covered and dry. - Routine Musculoskeletal Exam Musculoskeletal: Present: no clubbing or cyanosis - Routine Skin Exam Present: warm, normal turgor. Absent: mottling - Routine Neurological Exam Present: alert, oriented X3, CN II-XII intact, vision grossly intact, hearing grossly intact. Absent: motor deficit - Routine Psychiatric Exam Present: normal affect. Absent: anxious, agitated Results - Labs CBC & Chem 7: 09/27/16 04:43 09/27/16 04:43 Assessment and Plan (1) Non-healing wound Current visit: Yes Status: Chronic Assessment and Plan: Impression Infected, nonhealing wound of left BKA stump with culture growing Pseudomonas and Serratia marcescens sensitive to cefepime Mild hypernatremia, not POA, secondary to poor po intake Leukocytosis, POA Type 2 diabetes mellitus-currently well controlled on usual home insulin. Peripheral vascular disease History of bradycardia with normal EKG and troponin of [facility] Mild urinary retention-no treatment required at this time, improved Constipation, improving. Hx IBS. Depression/anxiety History of gastric ulcer Irritable bowel syndrome Tobacco dependence, not willing to discuss cessation currently, declines nicotine supplementation Plan Continue with cefepime as recommended by ID. Wound vac to restart at discharge secondary to patient not maintaining wound vac here. Continue current treatments and supportive care. Patient advised multiple times not to smoke - not interested in stopping at this time. Sepsis Assessment - Evaluation Sepsis screening result: No Definite Risk Hospital Course Summary Disclaimer: The visit summary below is not to be considered part of the above Progress Note. Hospital Course: 09/21/16 ASSESSMENT Non-healing wound of left BKA stump and medial thigh wound Cx grew Pseudomonas and Serratia marcescens, sensitive to cefepime. S/P debridement LLE stump & medial thigh wound on 09/13/[address] Pike. Instill VAC with Vashe was placed with slow improvement. Regular VAC was placed on 09/20/16. PVD [facility] Urinary retention Constipation DM type 2 with peripheral neuropathy, insulin-dependent. Last Hgb A1c was 6.4% on 10/05/15. Depression/anxiety Hx gastric ulcer IBS PLAN Admit to [facility], swing bed status for wound care and IV antibiotics. [facility] records were reviewed, along with DC instructions: -Cefepime IV q6h. -PICC line change weekly & PRN -Change wound vac MWF, suction @ 125 mm Hg -F/U [address] Pike -Plan to return for autograft at a later date. Check CBC and BMP in am - WBC was elevated at 12.9 on 09/20/16. Repeat hgb A1c. Carb consistent diet. Monitor BG and continue home meds. Consult wound team for wound vac care. Constipation - MiraLAX, other PRN's available. Pain control - Percocet. Also requesting Baclofen and Lyrica, which she's been taking at home. Consult PT/OT. Tobacco use - consult RT for tobacco cessation. Nicotine patch. Pt inquiring about other pharmacologic options as well. I informed her that [facility] is a nonsmoking facility. Pt and family report concern about vascular status in RLE - recommend f/u with vascular surgeon. I informed them they would not recommend any procedures until this infection has cleared up. 09/22/16 Continue Cefepime IV q6h. Stop date is 07/31 and then can DC home with home health on 10/01/16. Leukocytosis - WBC normal today. Mild hypernatremia 09/23/16 Continue Cefepime IV q6h. Stop date is 09/30 and then can DC home with home health on 10/01/16. Leukocytosis - WBC normal today, monitor Mild hypernatremia, monitor Constipation - continue meds. Monitor for ileus. Improved. Tobacco cessation - Willing to try vaping but that is not an inpatient solution , has signed AMA form documenting risks to her health and is going out to smoke on her own, will continue to discuss with her. DM2 - Continue current insulin dosing. BGM stable. 09/25/16 Increasing leukocytosis: Awaiting recommendations from Dr. Iyer. Wound VAC not yet reapplied. Hypernatremia: Pt agreed to push fluids. Repeat in am but if worsens consider IVF. Constipation, concern for ileus: Offered suppository or laxative - she declined Continue MiraLAX daily; MOM PRN; start routine Senna+ 09/26/16 Continued Leukocytosis, WBC count 16.7. Discussed importance of wound vac compliance. Awaiting evaluation from Dr Iyer to determine if wound Vac will be replaced. Intended you on IV cefepime for antimicrobial coverage. Stop date reported 09/30. Continue to work on glycemic control, fasting blood sugar this morning is 107. Continue Tresiba and Novolog. Monitor blood pressure and continue on lisinopril Lovenox subcutaneous daily for DVT prophylaxis Did review chemistry panel noted, hyperkalemia, which is likely secondary to specimen hemolysis,Will recheck tomorrow. 09/27/16 WBC normalized. Continue care and treatments. 09/28/16 Continue with cefepime as recommended by ID. Wound vac to restart at discharge secondary to patient not maintaining wound vac here. Continue current treatments and supportive care. Bowels moving. Pain controlled. Patient advised multiple times not to smoke - not interested in stopping at this time.
[2016-09-28] MEDS: ROSUVASTATIN 20 MG TABLET PO SCH (20:15)
[2016-09-28] MEDS: INSULIN DEGLUDEC SQ SCH (20:17)
[2016-09-28] MEDS: BACLOFEN 10 MG TABLET PO PRN (22:31)
[2016-09-29] MEDS: CEFEPIME 1 GM in NS 100 ML IV SCH ×3 (02:04→16:40)
[2016-09-29] MEDS: Oxycodone/Acetaminophen 5/325 1 TAB PO PRN (02:40)
[2016-09-29] MEDS: ENOXAPARIN 40 MG/0.4 ML INJECTION SQ SCH (09:50)
[2016-09-29] MEDS: SALINE FLUSH 10ml SYRINGE IV PRN ×2 (09:50→16:43)
[2016-09-29] MEDS: DULOXETINE 30 MG CAPSULE PO SCH (09:51)
[2016-09-29] MEDS: ZINC GLUCONATE 50 MG TABLET PO SCH (09:51)
[2016-09-29] MEDS: CLOPIDOGREL 75 MG TABLET PO SCH (09:51)
[2016-09-29] MEDS: LISINOPRIL 10 MG TABLET PO SCH (09:51)
[2016-09-29] MEDS: MULTI-VITAMIN + MINERAL TABLET PO SCH (09:51)
[2016-09-29] MEDS: SENNA + DOCUSATE TABLET PO SCH ×2 (09:52→22:13)
[2016-09-29] MEDS: MAGNESIUM OXIDE 400 MG TABLET PO SCH (09:52)
[2016-09-29] MEDS: CALCIUM CITRATE 950 MG TABLET PO SCH (09:52)
[2016-09-29] MEDS: PREGABALIN 100 MG CAPSULE PO SCH ×3 (09:52→22:13)
[2016-09-29] MEDS: LACTOBACILLUS (15B cfu) CAPSULE PO SCH (09:52)
[2016-09-29] MEDS: INSULIN ASPART 100unit/ml INJECTION SQ SCH ×4 (09:53→20:14)
[2016-09-29] MEDS: POLYETHYL GLYCOL 3350 17gm PACKET PO SCH (09:57)
--- NOTE | 2016-09-29 15:57 | Progress Note ---
<Tamara Quezada - Last Filed: 09/29/16 15:59> Subjective: Alysia is doing well, mostly complaining of boredom. She is looking forward to discharge. She states that she was "clogged up" a couple of days ago but this mostly improved - still is a little bloated. She continues to have swelling in her right leg, but that's looking better than yesterday too. She states she's not able to keep it elevated above the level of her heart. She has been eating will and reports gaining 5 lbs. No shortness of breath or cough or palpitations. Objective Vital signs: Temperature 97.1 F 09/29/16 07:28 Pulse Rate 75 09/29/16 07:28 Respiratory Rate 16 09/29/16 07:28 Blood Pressure 117/61 09/29/16 07:28 Pulse Oximetry 95 09/29/16 07:28 Oxygen Delivery Method Room Air Height/Weight/BMI: Height 1.63 m Weight 75.1 kg Body Mass Index 28.3 - Constitutional Present: no acute distress, well nourished, well developed - Routine HEENT Exam Eye: Present: PERRL. Absent: conjunctival icterus, scleral injection ENT: Present: oropharynx clear - Routine Respiratory Exam Present: CTA bilaterally - Routine Cardiovascular Exam Present: RRR, S1, S2 - Routine Abdominal Exam Present: normoactive bowel sounds, non tender, distended (mild) - Routine Extremities Exam Present: edema (1+ RLE) - Routine Musculoskeletal Exam Musculoskeletal: Present: other (dressing to Left BKA stump) - Routine Skin Exam Present: dry, warm - Routine Neurological Exam Present: alert, oriented X3 (slightly confused - she thought I worked for [employer]) - Routine Psychiatric Exam Present: normal affect, normal thought process Results - Labs CBC & Chem 7: 09/27/16 04:43 09/27/16 04:43 Assessment and Plan (1) Non-healing wound Current visit: Yes Status: Chronic Assessment and Plan: Impression Infected, nonhealing wound of left BKA stump with culture growing Pseudomonas and Serratia marcescens sensitive to cefepime Mild hypernatremia, not POA, secondary to poor po intake Leukocytosis, POA Type 2 diabetes mellitus-currently well controlled on usual home insulin. Peripheral vascular disease History of bradycardia with normal EKG and troponin of via [facility] Mild urinary retention-no treatment required at this time, improved Constipation, improving. Hx IBS. Depression/anxiety History of gastric ulcer Irritable bowel syndrome Tobacco dependence, not willing to discuss cessation currently, declines nicotine supplementation Plan Continue cefepime. Resume wound vac at time of discharge - to be set up with . Continue to monitor for constipation. Repeat labs in am - ensure stability prior to discharge on Sunday. Sepsis Assessment - Evaluation Sepsis screening result: No Definite Risk Hospital Course Summary Disclaimer: The visit summary below is not to be considered part of the above Progress Note. Hospital Course: 09/21/16 ASSESSMENT Non-healing wound of left BKA stump and medial thigh wound Cx grew Pseudomonas and Serratia marcescens, sensitive to cefepime. S/P debridement LLE stump & medial thigh wound on 09/13/[address] Pike. Instill VAC with Vashe was placed with slow improvement. Regular VAC was placed on 09/20/16. PVD [facility] Urinary retention Constipation DM type 2 with peripheral neuropathy, insulin-dependent. Last Hgb A1c was 6.4% on 10/05/15. Depression/anxiety Hx gastric ulcer IBS PLAN Admit to [facility], swing bed status for wound care and IV antibiotics. [facility] records were reviewed, along with DC instructions: -Cefepime IV q6h. -PICC line change weekly & PRN -Change wound vac MWF, suction @ 125 mm Hg -F/U [address] Pike -Plan to return for autograft at a later date. Check CBC and BMP in am - WBC was elevated at 12.9 on 09/20/16. Repeat hgb A1c. Carb consistent diet. Monitor BG and continue home meds. Consult wound team for wound vac care. Constipation - MiraLAX, other PRN's available. Pain control - Percocet. Also requesting Baclofen and Lyrica, which she's been taking at home. Consult PT/OT. Tobacco use - consult RT for tobacco cessation. Nicotine patch. Pt inquiring about other pharmacologic options as well. I informed her that [facility] is a nonsm[place] facility. Pt and family report concern about vascular status in RLE - recommend f/u with vascular surgeon. I informed them they would not recommend any procedures until this infection has cleared up. 09/22/16 Continue Cefepime IV q6h. Stop date is 07/31 and then can DC home with home health on 10/01/16. Leukocytosis - WBC normal today. Mild hypernatremia 09/23/16 Continue Cefepime IV q6h. Stop date is 09/30 and then can DC home with home health on 10/01/16. Leukocytosis - WBC normal today, monitor Mild hypernatremia, monitor Constipation - continue meds. Monitor for ileus. Improved. Tobacco cessation - Willing to try vaping but that is not an inpatient solution , has signed AMA form documenting risks to her health and is going out to smoke on her own, will continue to discuss with her. DM2 - Continue current insulin dosing. BGM stable. 09/25/16 Increasing leukocytosis: Awaiting recommendations from Dr. Iyer. Wound VAC not yet reapplied. Hypernatremia: Pt agreed to push fluids. Repeat in am but if worsens consider IVF. Constipation, concern for ileus: Offered suppository or laxative - she declined Continue MiraLAX daily; MOM PRN; start routine Senna+ 09/26/16 Continued Leukocytosis, WBC count 16.7. Discussed importance of wound vac compliance. Awaiting evaluation from Dr Iyer to determine if wound Vac will be replaced. Intended you on IV cefepime for antimicrobial coverage. Stop date reported 09/30. Continue to work on glycemic control, fasting blood sugar this morning is 107. Continue Tresiba and Novolog. Monitor blood pressure and continue on lisinopril Lovenox subcutaneous daily for DVT prophylaxis Did review chemistry panel noted, hyperkalemia, which is likely secondary to specimen hemolysis,Will recheck tomorrow. 09/27/16 WBC normalized. Continue care and treatments. 09/28/16-09/29/16 Continue with cefepime as recommended by ID. Wound vac to restart at discharge secondary to patient not maintaining wound vac here. Continue current treatments and supportive care. Bowels moving. Pain controlled. Patient advised multiple times not to smoke - not interested in stopping at this time. <Ricky Cabrera - Last Filed: 09/29/16 17:56> Objective Vital signs: Temperature 96.5 F L 09/29/16 16:00 Pulse Rate 78 09/29/16 16:00 Respiratory Rate 16 09/29/16 16:00 Blood Pressure 126/62 09/29/16 16:00 Pulse Oximetry 96 09/29/16 16:00 Oxygen Delivery Method Room Air Height/Weight/BMI: Height 1.63 m Weight 75.1 kg Body Mass Index 28.3 Results - Labs CBC & Chem 7: 09/27/16 04:43 09/27/16 04:43 Assessment and Plan (1) Non-healing wound Current visit: Yes Status: Chronic Assessment and Plan: Impression Infected, nonhealing wound of left BKA stump with culture growing Pseudomonas and Serratia marcescens sensitive to cefepime Mild hypernatremia, not POA, secondary to poor po intake Leukocytosis, POA Type 2 diabetes mellitus-currently well controlled on usual home insulin. Peripheral vascular disease History of bradycardia with normal EKG and troponin of via [facility] Mild urinary retention-no treatment required at this time, improved Constipation, improving. Hx IBS. Depression/anxiety History of gastric ulcer Irritable bowel syndrome Tobacco dependence, not willing to discuss cessation currently, declines nicotine supplementation Have independently interviewed and examined pt. Chart reviewed. Case discussed with CM and my CHEMISTRY ACCOUNT MANAGER. Care plan developed with my supervision; agree with above. Doing okay today. No f/c. Eating well. No nausea or ab pain. Breathing well. Lungs: decreased, no distress CV: regular MSE: awake alert appropriate Plan: Continue with cefepime. Home health arrangements made. Anticipate discharge Sunday after antibiotics completed. Hospital Course Summary Disclaimer: The visit summary below is not to be considered part of the above Progress Note.
[2016-09-29] MEDS: ASCORBIC ACID 500 MG TABLET PO SCH (16:43)
[2016-09-29] MEDS: ROSUVASTATIN 20 MG TABLET PO SCH (22:12)
[2016-09-29] MEDS: INSULIN DEGLUDEC SQ SCH (22:13)
[2016-09-30] MEDS: CEFEPIME 1 GM in NS 100 ML IV SCH ×5 (00:15→23:44)
[2016-09-30] MEDS: NS FLUSH BAG 500ml IV PRN ×2 (00:15→23:42)
[2016-09-30] MEDS: SALINE FLUSH 10ml SYRINGE IV PRN ×2 (06:30→23:42)
[2016-09-30] MEDS: INSULIN ASPART 100unit/ml INJECTION SQ SCH ×5 (08:11→18:24)
[2016-09-30] MEDS: ENOXAPARIN 40 MG/0.4 ML INJECTION SQ SCH (08:11)
[2016-09-30] MEDS: LACTOBACILLUS (15B cfu) CAPSULE PO SCH (08:12)
[2016-09-30] MEDS: MULTI-VITAMIN + MINERAL TABLET PO SCH (08:12)
[2016-09-30] MEDS: POLYETHYL GLYCOL 3350 17gm PACKET PO SCH (08:12)
[2016-09-30] MEDS: SENNA + DOCUSATE TABLET PO SCH ×2 (08:12→22:13)
[2016-09-30] MEDS: ASCORBIC ACID 500 MG TABLET PO SCH (08:12)
[2016-09-30] MEDS: CALCIUM CITRATE 950 MG TABLET PO SCH (08:12)
[2016-09-30] MEDS: DULOXETINE 30 MG CAPSULE PO SCH (08:13)
[2016-09-30] MEDS: MAGNESIUM OXIDE 400 MG TABLET PO SCH (08:13)
[2016-09-30] MEDS: ZINC GLUCONATE 50 MG TABLET PO SCH (08:13)
[2016-09-30] MEDS: PREGABALIN 100 MG CAPSULE PO SCH ×3 (08:13→22:13)
[2016-09-30] MEDS: CLOPIDOGREL 75 MG TABLET PO SCH (08:13)
[2016-09-30] MEDS: LISINOPRIL 10 MG TABLET PO SCH (08:13)
--- NOTE | 2016-09-30 12:11 | Progress Note ---
Subjective: I stopped in twice to see Alysia, but she was sleeping both times. She briefly awakened and fell back asleep. Per her nurse, she's been up since about 0400 and has been out smoking a few times already. She has not had any concerns. Objective Vital signs: Temperature 97.3 F 09/30/16 08:00 Pulse Rate 64 09/30/16 08:00 Respiratory Rate 17 09/30/16 08:00 Blood Pressure 124/49 09/30/16 08:00 Pulse Oximetry 93 09/30/16 08:00 Oxygen Delivery Method Room Air Cardiac Ectopy: Trigeminal PVC's Height/Weight/BMI: Height 1.63 m Weight 75.4 kg Body Mass Index 28.3 - Constitutional Present: no acute distress - Routine Respiratory Exam Present: CTA bilaterally - Routine Cardiovascular Exam Present: S1, S2 - Routine Abdominal Exam Present: soft - Routine Extremities Exam Present: edema (RLE) - Routine Musculoskeletal Exam Musculoskeletal: Present: other (left BKA) - Routine Skin Exam Present: intact, dry, warm Results - Labs CBC & Chem 7: 09/27/16 04:43 09/27/16 04:43 Assessment and Plan (1) Non-healing wound Current visit: Yes Status: Chronic Assessment and Plan: Impression Infected, nonhealing wound of left BKA stump with culture growing Pseudomonas and Serratia marcescens sensitive to cefepime Mild hypernatremia, not POA, secondary to poor po intake Leukocytosis, POA Type 2 diabetes mellitus-currently well controlled on usual home insulin. Peripheral vascular disease History of bradycardia with normal EKG and troponin of via [facility] Mild urinary retention-no treatment required at this time, improved Constipation, improving. Hx IBS. Depression/anxiety History of gastric ulcer Irritable bowel syndrome Tobacco dependence, not willing to discuss cessation currently, declines nicotine supplementation Plan Labs reviewed - electrolytes are stable. Medically stable. continue cefepime. Will plan on DC tomorrow. Sepsis Assessment - Evaluation Sepsis screening result: No Definite Risk Hospital Course Summary Disclaimer: The visit summary below is not to be considered part of the above Progress Note. Hospital Course: 09/21/16 ASSESSMENT Non-healing wound of left BKA stump and medial thigh wound Cx grew Pseudomonas and Serratia marcescens, sensitive to cefepime. S/P debridement LLE stump & medial thigh wound on 09/13/[address] Pike. Instill VAC with Vashe was placed with slow improvement. Regular VAC was placed on 09/20/16. PVD [facility] Urinary retention Constipation DM type 2 with peripheral neuropathy, insulin-dependent. Last Hgb A1c was 6.4% on 10/05/15. Depression/anxiety Hx gastric ulcer IBS PLAN Admit to [facility], swing bed status for wound care and IV antibiotics. [facility] records were reviewed, along with DC instructions: -Cefepime IV q6h. -PICC line change weekly & PRN -Change wound vac MWF, suction @ 125 mm Hg -F/U [address] Pike -Plan to return for autograft at a later date. Check CBC and BMP in am - WBC was elevated at 12.9 on 09/20/16. Repeat hgb A1c. Carb consistent diet. Monitor BG and continue home meds. Consult wound team for wound vac care. Constipation - MiraLAX, other PRN's available. Pain control - Percocet. Also requesting Baclofen and Lyrica, which she's been taking at home. Consult PT/OT. Tobacco use - consult RT for tobacco cessation. Nicotine patch. Pt inquiring about other pharmacologic options as well. I informed her that [facility] a nonsm[place] facility. Pt and family report concern about vascular status in RLE - recommend f/u with vascular surgeon. I informed them they would not recommend any procedures until this infection has cleared up. 09/22/16 Continue Cefepime IV q6h. Stop date is 07/31 and then can DC home with home health on 10/01/16. Leukocytosis - WBC normal today. Mild hypernatremia 09/23/16 Continue Cefepime IV q6h. Stop date is 09/30 and then can DC home with home health on 10/01/16. Leukocytosis - WBC normal today, monitor Mild hypernatremia, monitor Constipation - continue meds. Monitor for ileus. Improved. Tobacco cessation - Willing to try vaping but that is not an inpatient solution , has signed AMA form documenting risks to her health and is going out to smoke on her own, will continue to discuss with her. DM2 - Continue current insulin dosing. BGM stable. 09/25/16 Increasing leukocytosis: Awaiting recommendations from Dr. Iyer. Wound VAC not yet reapplied. Hypernatremia: Pt agreed to push fluids. Repeat in am but if worsens consider IVF. Constipation, concern for ileus: Offered suppository or laxative - she declined Continue MiraLAX daily; MOM PRN; start routine Senna+ 09/26/16 Continued Leukocytosis, WBC count 16.7. Discussed importance of wound vac compliance. Awaiting evaluation from Dr Iyer to determine if wound Vac will be replaced. Intended you on IV cefepime for antimicrobial coverage. Stop date reported 09/30. Continue to work on glycemic control, fasting blood sugar this morning is 107. Continue Tresiba and Novolog. Monitor blood pressure and continue on lisinopril Lovenox subcutaneous daily for DVT prophylaxis Did review chemistry panel noted, hyperkalemia, which is likely secondary to specimen hemolysis,Will recheck tomorrow. 09/27/16 WBC normalized. Continue care and treatments. 09/28/16-09/29/16 Continue with cefepime as recommended by ID. Wound vac to restart at discharge secondary to patient not maintaining wound vac here. Continue current treatments and supportive care. Bowels moving. Pain controlled. Patient advised multiple times not to smoke - not interested in stopping at this time.
[2016-09-30] MEDS: INSULIN DEGLUDEC SQ SCH (22:03)
[2016-09-30] MEDS: ROSUVASTATIN 20 MG TABLET PO SCH (22:13)
[2016-09-30] MEDS: Oxycodone/Acetaminophen 5/325 1 TAB PO PRN (22:22)
[2016-09-30] MEDS: BACLOFEN 10 MG TABLET PO PRN (22:23)
[2016-09-30 23:54] VITALS: TEMP 97.5
[2016-10-01] MEDS: CEFEPIME 1 GM in NS 100 ML IV SCH ×2 (05:28→10:20)
[2016-10-01] MEDS: ALENDRONATE 70 MG TABLET PO SCH (05:28)
[2016-10-01] MEDS: SALINE FLUSH 10ml SYRINGE IV PRN (05:28)
[2016-10-01 08:02] VITALS: BP 123/69; PULSE 81; RESP 16; O2SAT 95
[2016-10-01] MEDS ORDERED: CALCIUM CITRATE 950 MG TABLET PO SCH (09:00)
[2016-10-01] MEDS: INSULIN ASPART 100unit/ml INJECTION SQ SCH (10:10)
[2016-10-01] MEDS: ASCORBIC ACID 500 MG TABLET PO SCH (10:11)
[2016-10-01] MEDS: SENNA + DOCUSATE TABLET PO SCH (10:11)
[2016-10-01] MEDS: MULTI-VITAMIN + MINERAL TABLET PO SCH (10:13)
[2016-10-01] MEDS: LACTOBACILLUS (15B cfu) CAPSULE PO SCH (10:14)
[2016-10-01] MEDS: POLYETHYL GLYCOL 3350 17gm PACKET PO SCH (10:14)
[2016-10-01] MEDS: LISINOPRIL 10 MG TABLET PO SCH (10:14)
[2016-10-01] MEDS: DULOXETINE 30 MG CAPSULE PO SCH (10:15)
[2016-10-01] MEDS: ENOXAPARIN 40 MG/0.4 ML INJECTION SQ SCH (10:15)
[2016-10-01] MEDS: CLOPIDOGREL 75 MG TABLET PO SCH (10:15)
[2016-10-01] MEDS: MAGNESIUM OXIDE 400 MG TABLET PO SCH (10:15)
--- NOTE | 2016-10-01 10:16 | Progress Note ---
Subjective: F/U: Infected, nonhealing wound of left BKA stump with culture growing Pseudomonas and Serratia marcescens sensitive to cefepime Doing well this morning. Eating well. Breathing well. No problems with mobility. No f/c. Feels ready to go home. Objective Vital signs: Temperature 97.5 F 09/30/16 23:45 Pulse Rate 81 10/01/16 08:00 Respiratory Rate 16 10/01/16 08:00 Blood Pressure 123/69 10/01/16 08:00 Pulse Oximetry 95 10/01/16 08:00 Oxygen Delivery Method Room Air Cardiac Ectopy: Trigeminal PVC's Height/Weight/BMI: Height 1.63 m Weight 75.4 kg Body Mass Index 28.3 - Constitutional Present: no acute distress, moderate distress, well developed - Routine HEENT Exam Head: Present: normocephalic, atraumatic Eye: Present: EOMI, PERRL ENT: Present: mucous membranes moist - Routine Respiratory Exam Present: CTA bilaterally. Absent: respiratory distress, wheezes, crackles - Routine Cardiovascular Exam Present: RRR, no murmur - Routine Abdominal Exam Present: soft, normoactive bowel sounds, non distended, non tender - Routine Extremities Exam Present: no edema. Absent: cyanosis, clubbing - Routine Musculoskeletal Exam Musculoskeletal: Present: no clubbing or cyanosis, normal strength - Routine Skin Exam Present: dry, warm, normal turgor - Routine Neurological Exam Present: alert, oriented X3, CN II-XII intact, vision grossly intact, hearing grossly intact. Absent: motor deficit - Routine Psychiatric Exam Present: normal affect, normal thought process, cooperative. Absent: anxious, agitated Results - Labs CBC & Chem 7: 09/27/16 04:43 09/27/16 04:43 Assessment and Plan (1) Non-healing wound Current visit: Yes Status: Chronic DVT Prophylaxis: Lovenox Assessment and Plan: Impression Infected, nonhealing wound of left BKA stump with culture growing Pseudomonas and Serratia marcescens sensitive to cefepime Mild hypernatremia, not POA, secondary to poor po intake Leukocytosis, POA Type 2 diabetes mellitus-currently well controlled on usual home insulin. Peripheral vascular disease History of bradycardia with normal EKG and troponin of via [facility] Mild urinary retention-no treatment required at this time, improved Constipation, improving. Hx IBS. Depression/anxiety History of gastric ulcer Irritable bowel syndrome Tobacco dependence, not willing to discuss cessation currently, declines nicotine supplementation Plan Will discharge to home. Antibiotic course completed. Home health set up for continued wound care. Will have pt follow up with Dr Funk in 1 week for medical evaluations. F/U with Dr Iyer in wound clinic on 10/24/16 F/U with her surgeon as scheduled. See orders for details. - Time spent with patient discharge greater than 30 minutes Sepsis Assessment - Evaluation Sepsis screening result: No Definite Risk Hospital Course Summary Disclaimer: The visit summary below is not to be considered part of the above Progress Note. Hospital Course: 09/21/16 ASSESSMENT Non-healing wound of left BKA stump and medial thigh wound Cx grew Pseudomonas and Serratia marcescens, sensitive to cefepime. S/P debridement LLE stump & medial thigh wound on 09/13/[address] Pike. Instill VAC with Vashe was placed with slow improvement. Regular VAC was placed on 09/20/16. PVD [facility] Urinary retention Constipation DM type 2 with peripheral neuropathy, insulin-dependent. Last Hgb A1c was 6.4% on 10/05/15. Depression/anxiety Hx gastric ulcer IBS PLAN Admit to [facility], swing bed status for wound care and IV antibiotics. Via [facility] records were reviewed, along with DC instructions: -Cefepime IV q6h. -PICC line change weekly & PRN -Change wound vac MWF, suction @ 125 mm Hg -F/U [address] Pike -Plan to return for autograft at a later date. Check CBC and BMP in am - WBC was elevated at 12.9 on 09/20/16. Repeat hgb A1c. Carb consistent diet. Monitor BG and continue home meds. Consult wound team for wound vac care. Constipation - MiraLAX, other PRN's available. Pain control - Percocet. Also requesting Baclofen and Lyrica, which she's been taking at home. Consult PT/OT. Tobacco use - consult RT for tobacco cessation. Nicotine patch. Pt inquiring about other pharmacologic options as well. I informed her that [facility] is a nonsmoking facility. Pt and family report concern about vascular status in RLE - recommend f/u with vascular surgeon. I informed them they would not recommend any procedures until this infection has cleared up. 09/22/16 Continue Cefepime IV q6h. Stop date is 07/31 and then can DC home with home health on 10/01/16. Leukocytosis - WBC normal today. Mild hypernatremia 09/23/16 Continue Cefepime IV q6h. Stop date is 09/30 and then can DC home with home health on 10/01/16. Leukocytosis - WBC normal today, monitor Mild hypernatremia, monitor Constipation - continue meds. Monitor for ileus. Improved. Tobacco cessation - Willing to try vaping but that is not an inpatient solution , has signed AMA form documenting risks to her health and is going out to smoke on her own, will continue to discuss with her. DM2 - Continue current insulin dosing. BGM stable. 09/25/16 Increasing leukocytosis: Awaiting recommendations from Dr. Iyer. Wound VAC not yet reapplied. Hypernatremia: Pt agreed to push fluids. Repeat in am but if worsens consider IVF. Constipation, concern for ileus: Offered suppository or laxative - she declined Continue MiraLAX daily; MOM PRN; start routine Senna+ 09/26/16 Continued Leukocytosis, WBC count 16.7. Discussed importance of wound vac compliance. Awaiting evaluation from Dr Iyer to determine if wound Vac will be replaced. Intended you on IV cefepime for antimicrobial coverage. Stop date reported 09/30. Continue to work on glycemic control, fasting blood sugar this morning is 107. Continue Tresiba and Novolog. Monitor blood pressure and continue on lisinopril Lovenox subcutaneous daily for DVT prophylaxis Did review chemistry panel noted, hyperkalemia, which is likely secondary to specimen hemolysis,Will recheck tomorrow. 09/27/16 WBC normalized. Continue care and treatments. 09/28/16-09/30/16 Continue with cefepime as recommended by ID. Wound vac to restart at discharge secondary to patient not maintaining wound vac here. Continue current treatments and supportive care. Bowels moving. Pain controlled. Patient advised multiple times not to smoke - not interested in stopping at this time. 10/01/16 Will discharge to home. Antibiotic course completed. Home health set up for continued wound care. Will have pt follow up with Dr Funk in 1 week for medical evaluations. F/U with Dr Iyer in wound clinic on 10/24/16 F/U with Dr Pike as scheduled for surgical reevaluation. See orders for details.
[2016-10-01] MEDS: PREGABALIN 100 MG CAPSULE PO SCH (10:19)
[2016-10-01] MEDS: ZINC GLUCONATE 50 MG TABLET PO SCH (10:20)
--- NOTE | 2016-10-01 10:23 | Discharge Summary ---
Discharge Information Date of admission: 09/21/16 14:28 Anticipated date of discharge: 10/01/16 Attending Physician: Ricky Cabrera MD Primary care physician: Dr Funk Consults: 09/21/16 Wound Vein Clinic Consult 09/22/16 Physician Consult: Shalom Iyer Reason For Exam: WOUND VAC INSERTION - Discharge Diagnosis Discharge Diagnosis: Infected, nonhealing wound of left BKA stump with culture growing Pseudomonas and Serratia marcescens sensitive to cefepime Associated conditions and complications Mild hypernatremia, not POA, secondary to poor po intake Leukocytosis, POA - resolved Type 2 diabetes mellitus-currently well controlled on usual home insulin. Peripheral vascular disease History of bradycardia with normal EKG and troponin of via [facility] Mild urinary retention-no treatment required at this time, improved Constipation, improving. Hx IBS. Depression/anxiety History of gastric ulcer Irritable bowel syndrome Tobacco dependence, not willing to discuss cessation currently, declines nicotine supplementation - Laboratory Labs: 09/27/16 04:43 09/27/16 04:43 History of Present Illness HPI: Alysia Rosa is a 71 year old lady with multiple medical comorbidities including severe PVD, DM2 with peripheral neuropathy and dependent on insulin, and left BKA. She had a left femoropopliteal bypass by Dr. Sanches in March 2016. However, following this procedure, the skin incision over the graft dehisced. Subsequently, she underwent a muscle flap with wound VAC on 04/14/[address] Escamilla, only to have it become infected with Pseudomonas. Dr. Sanches removed the left femoropopliteal bypass and then reapplied the wound VAC on 04/20/16. She has had a chronic nonhealing wound since that time. She represented to Dr. Sanches 's office on 06/09/16 with a severe infection of her left lower extremity and ulceration of the distal phalanx and dorsal aspect of the left foot. Amputation was recommended at that time, and she underwent left [id number] amputation by Dr. Yonatan Pike on 06/19/16. Since this time, she had developed a nonhealing wound of her left BKA stump and medial thigh. She was readmitted to the hospital, and underwent debridement of the left lower extremity stump and medial thigh wound on 09/13/[address] Pike. Cultures grew out Pseudomonas and Serratia marcescens, which were sensitive to cefepime.Instill VAC with Vashe was placed and she had slow improvement. During her hospitalization, her blood glucose was variable, ranging from mildly hypoglycemic to 200+. White count was occasionally elevated and was 12.9 on the day of discharge. Hemoglobin stable. Chemistries also remained stable with preserved renal function and GFR >60. A regular VAC was placed on 09/20/16, and arrangements were made for transfer to [facility] for continued IV antibiotics and wound care in swing bed status. Since her recent surgery she has denied any other physical symptoms besides pain. She's also had constipation, which has resolved. For complete details of the H&P refer to that document. Objective Vital signs: Temperature 97.5 F 09/30/16 23:45 Pulse Rate 81 10/01/16 08:00 Respiratory Rate 16 10/01/16 08:00 Blood Pressure 123/69 10/01/16 08:00 Pulse Oximetry 95 10/01/16 08:00 Oxygen Delivery Method Room Air Cardiac Ectopy: Trigeminal PVC's Height/Weight/BMI: Height 1.63 m Weight 75.4 kg Body Mass Index 28.3 Hospital Course This is a general summary of the patient's hospital course. For more details refer to the complete medical record. Hospital course: 09/21/16 ASSESSMENT Non-healing wound of left BKA stump and medial thigh wound Cx grew Pseudomonas and Serratia marcescens, sensitive to cefepime. S/P debridement LLE stump & medial thigh wound on 09/13/[address] Pike. Instill VAC with Vashe was placed with slow improvement. Regular VAC was placed on 09/20/16. PVD Bradycardia normal EKG and troponin at [facility] Urinary retention Constipation DM type 2 with peripheral neuropathy, insulin-dependent. Last Hgb A1c was 6.4% on 10/05/15. Depression/anxiety Hx gastric ulcer IBS PLAN Admit to [facility], swing bed status for wound care and IV antibiotics. [facility] records were reviewed, along with DC instructions: -Cefepime IV q6h. -PICC line change weekly & PRN -Change wound vac MWF, suction @ 125 mm Hg -F/U [address] Pike -Plan to return for autograft at a later date. Check CBC and BMP in am - WBC was elevated at 12.9 on 09/20/16. Repeat hgb A1c. Carb consistent diet. Monitor BG and continue home meds. Consult wound team for wound vac care. Constipation - MiraLAX, other PRN's available. Pain control - Percocet. Also requesting Baclofen and Lyrica, which she's been taking at home. Consult PT/OT. Tobacco use - consult RT for tobacco cessation. Nicotine patch. Pt inquiring about other pharmacologic options as well. I informed her that [facility] [place] a nons[place] facility. Pt and family report concern about vascular status in RLE - recommend f/u with vascular surgeon. I informed them they would not recommend any procedures until this infection has cleared up. 09/22/16 Continue Cefepime IV q6h. Stop date is 07/31 and then can DC home with home health on 10/01/16. Leukocytosis - WBC normal today. Mild hypernatremia 09/23/16 Continue Cefepime IV q6h. Stop date is 09/30 and then can DC home with home health on 10/01/16. Leukocytosis - WBC normal today, monitor Mild hypernatremia, monitor Constipation - continue meds. Monitor for ileus. Improved. Tobacco cessation - Willing to try vaping but that is not an inpatient solution , has signed AMA form documenting risks to her health and is going out to smoke on her own, will continue to discuss with her. DM2 - Continue current insulin dosing. BGM stable. 09/25/16 Increasing leukocytosis: Awaiting recommendations from Dr. Iyer. Wound VAC not yet reapplied. Hypernatremia: Pt agreed to push fluids. Repeat in am but if worsens consider IVF. Constipation, concern for ileus: Offered suppository or laxative - she declined Continue MiraLAX daily; MOM PRN; start routine Senna+ 09/26/16 Continued Leukocytosis, WBC count 16.7. Discussed importance of wound vac compliance. Awaiting evaluation from Dr Iyer to determine if wound Vac will be replaced. Intended you on IV cefepime for antimicrobial coverage. Stop date reported 09/30. Continue to work on glycemic control, fasting blood sugar this morning is 107. Continue Tresiba and Novolog. Monitor blood pressure and continue on lisinopril Lovenox subcutaneous daily for DVT prophylaxis Did review chemistry panel noted, hyperkalemia, which is likely secondary to specimen hemolysis,Will recheck tomorrow. 09/27/16 WBC normalized. Continue care and treatments. 09/28/16-09/30/16 Continue with cefepime as recommended by ID. Wound vac to restart at discharge secondary to patient not maintaining wound vac here. Continue current treatments and supportive care. Bowels moving. Pain controlled. Patient advised multiple times not to smoke - not interested in stopping at this time. 10/01/16 Will discharge to home. Antibiotic course completed. Home health set up for continued wound care. Will have pt follow up with Dr Funk in 1 week for medical evaluations. F/U with Dr Iyer in wound clinic on 10/24/16 F/U with Dr Pike as scheduled for surgical reevaluation. See orders for details. DVT Prophylaxis: Lovenox Discharge Plan - Med Rec/Dispo Referrals/Follow Up: Darshan Funk MD [Physician] - 1 Week (Hospital follow up. ) Shalom Iyer MD [Physician] - 10/24/16 (Wound clinic on 10/24 ) Yonatan Pike MD [Physician] - () Additional Instructions: AN APPOINTMENT AT THE WOUND CARE CLINIC NEEDS TO BE SCHEDULED FOR 2016. [facility] WILL ASSIST WITH SCHEDULING THIS APPOINTMENT. Prescriptions: New Bisacodyl Supp [Dulcolax] 10 mg RECTALLY DAILY PRN supp PRN Reason: Constipation Senna + Docusate [Senna Plus Tablet] 1 tab PO BID PRN tablet PRN Reason: Constipation Oxycodone/APAP 5/325 [Percocet 5/325] 1 - 2 tab PO Q4H PRN #30 tablet PRN Reason: Pain Continue Polyethylene Glycol 3350 [Miralax] 17 gm PO DAILY Multivitamin [One Daily] 1 each PO DAILY Magnesium Oxide [Magnesium] 1 tab PO DAILY Insulin Degludec *U100* [Tresiba Flextouch U-100 Pen] 40 unit SQ HS Ciclopirox/Ure/Camph/Menth/Euc [Ciclopirox 8% Treatment Kit] 34.6 ml TP DAILY Calcium Citrate 250 mg PO DAILY Ascorbic Acid 500 mg PO DAILY Alendronate [Fosamax] 70 mg PO Q7D Insulin Aspart [NovoLOG] 20 unit SQ TIDWM Rosuvastatin Calcium 40 mg PO HS Clopidogrel Bisulfate [Clopidogrel] 1 tab PO DAILY Baclofen [Lioresal] 1 tab PO Q8HPRN PRN PRN Reason: Muscle Spasm Pregabalin Cap [Lyrica] 100 mg PO TID Lisinopril [Prinivil] 10 mg PO DAILY Zinc Sulfate 220 mg PO DAILY Lactobacillus Rhamnosus GG [Culturelle] 1 each PO DAILY Cholecalciferol (Vitamin D3) [Vitamin D3] 1 tab PO DAILY Duloxetine [Cymbalta] 90 mg PO DAILY Discontinued Oxycodone/APAP 5/325 1 tab PO Q6HPRN Discharge Instructions/Outpatient Orders: Final Provider Discharge Instructions Location: Determined By Patient - Disposition [facility] - Attestation Attestation Narrative: 10/01/16 10:31 I have independently interviewed and examined patient prior to discharge. See my progress note from today for details. Medically stable for discharge to home.
== END 2016-10-01 12:37 | disposition home health service (06) | DRG 464 ==
LOC: MED
PROVIDERS: ADMIT Internal Medicine; ATTEND Hospitalist